=== PATIENT | male | born 1980 | race Caucasian/White ===

== ENCOUNTER 2018-08-17 08:01 | Emergency (ER) | payer MEDICARE ==
[~2018-08-17] VITALS: Ht 193 cm; Wt 104.3 kg
[~2018-08-17 08:01] MED LIST: Amphetamine Sal20 MG PO; Atarax10 MG; Ativan1 MG SL; BUSP5 PO; CARV6.25 PO; CITA20 PO; CLON.5 PO; CLON1 PO; CYCL10 PO; Dazidox10 MG PO; Desyrel50 MG; Desyrel50 MG PO; FURO40 PO; HYDPAM25 PO; HYDR1TAB94 PO; HYOSCYAMINE0.375 MG PO; Inderal40 MG PO; K-Dur20 MEQ PO; Kristalose20 GM PO; LISI5 PO; OMEP20ER PO; PROC5 PO; PROM25 PO; PROP10; VENL75ER PO; VITAMINS; XARELTO15 MG PO; XARELTO20 MG PO; Xanax1 MG PO; Zofran8 MG PO
[2018-08-17] MEDS ORDERED: ASPI81CH PO (08:17)
[2018-08-17 08:55] LABS: Source, Urine Clean Catch
[2018-08-17 09:04] LABS: Bilirubin, Urine Neg (Neg); Blood, Urine Neg (Neg); Glucose Qualitative, Urine Neg (Neg); Ketones, Urine 1+ (Neg); Leukocyte Esterase, Urine Neg (Neg); Nitrite, Urine Neg (Neg); Protein, Urine Neg (Neg); Urobilinogen, Urine 2+ (Normal)
[2018-08-17 09:05] LABS: Appearance, Urine Clear (Clear); Color, Urine Yellow (P-Yellow)
[2018-08-17 09:14] LABS: BASOPHILS ABSOLUTE AUTO 0.03 K/mm3 (0.00-0.23); BASOPHILS PERCENT AUTO 1 % (0-2); EOSINOPHILS ABSOLUTE AUTO 0.02 K/mm3 (0.00-0.68); EOSINOPHILS PERCENT AUTO 0 % (0-6); Hematocrit 46.2 % (37.0-53.0); Hemoglobin 15.5 g/dL (13.5-17.5); IMMATURE GRAN ABSOLUTE AUTO 0.01 K/mm3 (0.00-0.10); IMMATURE GRAN PERCENT AUTO 0 % (0-1); LYMPHOCYTES ABSOLUTE AUTO 1.33 K/mm3 (0.84-5.20); LYMPHOCYTES PERCENT AUTO 21 % (21-46); MONOCYTES ABSOLUTE AUTO 0.31 K/mm3 (0.16-1.47); MONOCYTES PERCENT AUTO 5 % (4-13); Mean Corpuscular HGB 31.4 pg (26.0-34.0); Mean Corpuscular HGB Conc 33.5 g/dL (31.5-36.5); Mean Corpuscular Volume 94 fL (80-100); Mean Platelet Volume 11.1 fL (9.1-12.4); NEUTROPHILS ABSOLUTE AUTO 4.67 K/mm3 (1.96-9.15); NEUTROPHILS PERCENT AUTO 73 % (41-73); Platelet Count 199 K/mm3 (150-400); RDW Coefficient Variation 15.4 % (11.7-14.2); RDW Standard Deviation 52.8 fL (35.1-46.3); Red Blood Cell Count 4.94 M/mm3 (4.30-5.90); White Blood Cell Count 6.37 K/mm3 (4.00-11.30)
[2018-08-17 09:36] LABS: Alanine Aminotransfer (ALT/SGP 61 U/L (12-78); Albumin, Blood 3.8 g/dL (3.4-5.0); Albumin/Globulin Ratio 1.2 (0.8-1.8); Alk Phos 117 U/L (50-136); Anion Gap 10 mmol/L (6-16); Aspartate Aminotrans (AST/SGOT 51 U/L (12-37); Bilirubin, Total 1.3 mg/dL (0.1-1.0); Blood Urea Nitrogen 28 mg/dL (8-24); Bun/Creatinine Ratio 29.3 (12.0-20.0); CO2, Blood 23 mmol/L (21-32); Calcium, Blood 9.3 mg/dL (8.5-10.1); Chloride, Blood 107 mmol/L (98-108); Creatinine, Blood 0.96 mg/dL (0.60-1.20); Globulin, Blood 3.2 g/dL (2.2-4.0); Glomerular Filtration Rate >60 (60-); Glucose, Blood 101 mg/dL (70-99); Sodium, Blood 140 mmol/L (136-145)
[2018-08-17] MEDS ORDERED: ONDA4ODT MM (10:20)
== END 2018-08-17 10:46 | disposition home or self-care (01) ==
LOC: ER 08:01
PROVIDERS: Emergency Medicine
DX: R10.84 Generalized abdominal pain (principal); R10.11 Right upper quadrant pain; R10.33 Periumbilical pain; R11.2 Nausea with vomiting, unspecified; Z90.49 Acquired absence of other specified parts of digestive tract; Z88.8 Allergy status to other drugs, medicaments and biological substances; Z79.899 Other long term (current) drug therapy; F17.290 Nicotine dependence, other tobacco product, uncomplicated
CPT/HCPCS: 36415; 74177; 80053; 81003; 83605; 83690; 85025; 96361; 96374-59; 96375; 99284-25; J1630; J3010; J7030; Q9967

== ENCOUNTER 2019-05-31 09:39 | Emergency (ER) | payer MEDICARE ==
[~2019-05-31] VITALS: Ht 195.6 cm; Wt 99.8 kg
[~2019-05-31 09:39] MED LIST changes: +ASPI81CH PO; +ONDA4ODT MM
[2019-05-31] MEDS ORDERED: K-Dur20 MEQ (09:59)
[2019-05-31 11:14] LABS: BASOPHILS ABSOLUTE AUTO 0.08 K/mm3 (0.00-0.23); BASOPHILS PERCENT AUTO 1 % (0-2); EOSINOPHILS ABSOLUTE AUTO 0.04 K/mm3 (0.00-0.68); EOSINOPHILS PERCENT AUTO 1 % (0-6); Hematocrit 40.2 % (37.0-53.0); Hemoglobin 12.8 g/dL (13.5-17.5); IMMATURE GRAN ABSOLUTE AUTO 0.03 K/mm3 (0.00-0.10); IMMATURE GRAN PERCENT AUTO 0 % (0-1); LYMPHOCYTES PERCENT AUTO 24 % (21-46); MONOCYTES ABSOLUTE AUTO 0.67 K/mm3 (0.16-1.47); MONOCYTES PERCENT AUTO 8 % (4-13); Mean Corpuscular HGB 26.8 pg (26.0-34.0); Mean Corpuscular HGB Conc 31.8 g/dL (31.5-36.5); Mean Corpuscular Volume 84 fL (80-100); Mean Platelet Volume 10.6 fL (9.1-12.4); NEUTROPHILS ABSOLUTE AUTO 5.32 K/mm3 (1.96-9.15); NEUTROPHILS PERCENT AUTO 66 % (41-73); Platelet Count 226 K/mm3 (150-400); RDW Coefficient Variation 17.1 % (11.7-14.2); RDW Standard Deviation 52.1 fL (35.1-46.3); Red Blood Cell Count 4.77 M/mm3 (4.30-5.90); White Blood Cell Count 8.04 K/mm3 (4.00-11.30)
[2019-05-31 11:27] LABS: International Normalized Ratio 1.38; Prothrombin Time Results 14.5 Sec (9.7-11.5)
[2019-05-31 11:34] LABS: Alanine Aminotransfer (ALT/SGP 48 U/L (12-78); Albumin, Blood 3.3 g/dL (3.4-5.0); Alk Phos 123 U/L (50-136); Anion Gap 8 mmol/L (6-16); Aspartate Aminotrans (AST/SGOT 45 U/L (12-37); Bilirubin, Total 1.9 mg/dL (0.1-1.0); Blood Urea Nitrogen 18 mg/dL (8-24); Bun/Creatinine Ratio 18.8 (12.0-20.0); CO2, Blood 22 mmol/L (21-32); Calcium, Blood 8.8 mg/dL (8.5-10.1); Chloride, Blood 109 mmol/L (98-108); Creatinine, Blood 0.96 mg/dL (0.60-1.20); Globulin, Blood 3.2 g/dL (2.2-4.0); Glomerular Filtration Rate >60 (60-); Glucose, Blood 91 mg/dL (70-99); Potassium, Blood 4.4 mmol/L (3.5-5.5); Sodium, Blood 139 mmol/L (136-145); Total Protein, Blood 6.5 g/dL (6.4-8.2)
[2019-05-31 11:35] LABS: Troponin I 0.062 ng/mL (0.000-0.040)
[2019-05-31 11:46] LABS: Free Thyroxine 1.22 ng/dL (0.70-1.60)
[2019-05-31 11:47] LABS: Thyroid Stimulating Hormone 3.21 uIU/mL (0.360-4.800)
[2019-05-31 12:57] LABS: Source, Urine Clean Catch
[2019-05-31 13:19] LABS: Bilirubin, Urine Neg (Neg); Blood, Urine 5+ (Neg); Glucose Qualitative, Urine Neg (Neg); Ketones, Urine Neg (Neg); Leukocyte Esterase, Urine Neg (Neg); Nitrite, Urine Neg (Neg); Protein, Urine 3+ (Neg); Urobilinogen, Urine 3+ (Normal)
[2019-05-31 13:34] LABS: Appearance, Urine Clear (Clear); Color, Urine Yellow (P-Yellow)
[2019-05-31 13:35] LABS: Bacteria Not Seen /hpf; Squamous Epithelial Cells Not Seen /hpf (Few); White Blood Cells, Urine 0-2 /hpf (0-5)
[2019-05-31] MEDS ORDERED: TORSE20 PO (13:53)
== END 2019-05-31 14:26 | disposition home or self-care (01) ==
LOC: ER 09:39
PROVIDERS: Emergency Medicine
DX: I50.9 Heart failure, unspecified (principal); R31.9 Hematuria, unspecified; F17.290 Nicotine dependence, other tobacco product, uncomplicated; Z88.1 Allergy status to other antibiotic agents; Z79.899 Other long term (current) drug therapy; Z79.82 Long term (current) use of aspirin
CPT/HCPCS: 36415; 71046; 71260; 80053; 81001; 83735; 83880; 84439; 84443; 84484; 85025; 85610; 85730; 93005; 93010; 99285-25; Q9967

== ENCOUNTER 2019-09-02 14:47 | Observation (INO) | payer MEDICARE ==
[~2019-09-02] VITALS: Ht 193 cm; Wt 93.7 kg
[~2019-09-02 14:47] MED LIST changes: -ASPI81CH PO; +Aspirin EC81 MG PO; +HYDHCL25 PO; +K-Dur20 MEQ; +TORSE20 PO; +TRAM50 PO
[2019-09-02 15:35] LABS: BASOPHILS ABSOLUTE AUTO 0.07 K/mm3 (0.00-0.23); BASOPHILS PERCENT AUTO 1 % (0-2); EOSINOPHILS ABSOLUTE AUTO 0.04 K/mm3 (0.00-0.68); EOSINOPHILS PERCENT AUTO 1 % (0-6); Hematocrit 49.3 % (37.0-53.0); Hemoglobin 15.9 g/dL (13.5-17.5); IMMATURE GRAN ABSOLUTE AUTO 0.01 K/mm3 (0.00-0.10); IMMATURE GRAN PERCENT AUTO 0 % (0-1); LYMPHOCYTES ABSOLUTE AUTO 1.74 K/mm3 (0.84-5.20); LYMPHOCYTES PERCENT AUTO 32 % (21-46); MONOCYTES ABSOLUTE AUTO 0.46 K/mm3 (0.16-1.47); MONOCYTES PERCENT AUTO 8 % (4-13); Mean Corpuscular HGB 26.2 pg (26.0-34.0); Mean Corpuscular HGB Conc 32.3 g/dL (31.5-36.5); Mean Corpuscular Volume 81 fL (80-100); Mean Platelet Volume 10.3 fL (9.1-12.4); NEUTROPHILS PERCENT AUTO 58 % (41-73); Platelet Count 235 K/mm3 (150-400); RDW Coefficient Variation 18.9 % (11.7-14.2); RDW Standard Deviation 53.1 fL (35.1-46.3); Red Blood Cell Count 6.08 M/mm3 (4.30-5.90); White Blood Cell Count 5.52 K/mm3 (4.00-11.30)
[2019-09-02 16:05] LABS: Alanine Aminotransfer (ALT/SGP 31 U/L (12-78); Albumin, Blood 4.2 g/dL (3.4-5.0); Alk Phos 159 U/L (50-136); Anion Gap 16 mmol/L (6-16); Aspartate Aminotrans (AST/SGOT 38 U/L (12-37); Bilirubin, Total 2.5 mg/dL (0.1-1.0); Blood Urea Nitrogen 14 mg/dL (8-24); Bun/Creatinine Ratio 16.5 (12.0-20.0); CO2, Blood 18 mmol/L (21-32); Chloride, Blood 107 mmol/L (98-108); Creatinine, Blood 0.85 mg/dL (0.60-1.20); Globulin, Blood 4.1 g/dL (2.2-4.0); Glomerular Filtration Rate >60 (60-); Glucose, Blood 89 mg/dL (70-99); Potassium, Blood 3.5 mmol/L (3.5-5.5); Sodium, Blood 141 mmol/L (136-145); Total Protein, Blood 8.3 g/dL (6.4-8.2); Troponin I 0.069 ng/mL (0.000-0.040)
[2019-09-02] MEDS ORDERED: TORSE20 PO (18:36)
[2019-09-02] MEDS ORDERED: K-Dur 20 meq T20 MEQ PO (18:57)
[2019-09-02 23:18] LABS: Source, Urine Clean Catch
[2019-09-02 23:21] LABS: Appearance, Urine Clear (Clear); Bilirubin, Urine Neg (Neg); Blood, Urine Neg (Neg); Color, Urine Amber (P-Yellow); Glucose Qualitative, Urine Neg (Neg); Ketones, Urine 4+ (Neg); Leukocyte Esterase, Urine Neg (Neg); Nitrite, Urine Neg (Neg); Protein, Urine 1+ (Neg); Specific Gravity, Urine 1.015 (1.003-1.022); Urobilinogen, Urine 3+ (Normal)
--- NOTE | 2019-09-03 05:30 | NUR ---
SHIFT SUMMARY PT WAS NEW ER ADMIT THIS SHIFT (2118) NO ACUTE CHANGES SINCE ASSUMING CARE, PT IS PLEASANT, A&O, INDEP TO BR, MEDICATED FOR PAIN X2, NAUSEA X2, NO OTHER C/O ANY KIND, SLEPT T/O THE NIGHT, SLEEPING AT THIS TIME, CALL LIGHT IN REACH, WILL CONT TO MONITOR UNTIL REPORT GIVEN TO DAY RN.
[2019-09-03 05:31] LABS: Alanine Aminotransfer (ALT/SGP 27 U/L (12-78); Albumin, Blood 3.2 g/dL (3.4-5.0); Albumin/Globulin Ratio 0.9 (0.8-1.8); Alk Phos 128 U/L (50-136); Anion Gap 7 mmol/L (6-16); Aspartate Aminotrans (AST/SGOT 25 U/L (12-37); Bilirubin, Total 1.5 mg/dL (0.1-1.0); Blood Urea Nitrogen 12 mg/dL (8-24); Bun/Creatinine Ratio 14.4 (12.0-20.0); CO2, Blood 24 mmol/L (21-32); Calcium, Blood 8.9 mg/dL (8.5-10.1); Chloride, Blood 111 mmol/L (98-108); Creatinine, Blood 0.84 mg/dL (0.60-1.20); Globulin, Blood 3.5 g/dL (2.2-4.0); Glomerular Filtration Rate >60 (60-); Glucose, Blood 95 mg/dL (70-99); Potassium, Blood 4.4 mmol/L (3.5-5.5); Sodium, Blood 142 mmol/L (136-145); Total Protein, Blood 6.7 g/dL (6.4-8.2)
--- NOTE | 2019-09-03 10:56 | NUR ---
REGULAR DIET RECEIVED VERBAL ORDER FROM DR. RIDDLE TO ADVANCE DIET TOLERATED. PATIENT REQUESTING REGULAR DIET, DENIES NAUSEA.
[2019-09-03] MEDS ORDERED: METO10 PO (13:16)
[2019-09-03] MEDS ORDERED: Inzo Antifun141.7 GM TOP (13:23)
[2019-09-03] MEDS ORDERED: Prilosec Otc20 MG PO (13:24)
[2019-09-03] MEDS ORDERED: Magnesium-Alum360 ML (13:25)
[2019-09-03] MEDS ORDERED: ALMACONE SUSPE355 ML PO (13:26)
[2019-09-23] MEDS ORDERED: ACET325 PO (13:19)
[2019-09-23] MEDS ORDERED: ALMACONE SUSPE355 ML PO (13:20)
[2019-09-23] MEDS ORDERED: PROM25 PO (13:21)
[2019-09-23] MEDS ORDERED: PANT40 PO (13:21)
[2019-09-23] MEDS ORDERED: OXYACE7.5T PO (13:22)
== END 2019-09-03 14:13 | disposition home or self-care (01) ==
LOC: ER 14:47 → MEDS 14:48 → ER 21:15 → MEDS 21:35
PROVIDERS: Physician Assistant; ADMIT Internal Medicine
DX: R11.2 Nausea with vomiting, unspecified (principal); R10.9 Unspecified abdominal pain; K52.9 Noninfective gastroenteritis and colitis, unspecified; I27.21 Secondary pulmonary arterial hypertension; R79.89 Other specified abnormal findings of blood chemistry; Z88.1 Allergy status to other antibiotic agents; Z87.891 Personal history of nicotine dependence; I50.9 Heart failure, unspecified; Z79.899 Other long term (current) drug therapy
CPT/HCPCS: 36415; 71045; 74177; 80053; 83690; 83880; 84484; 85025; 85379; 93005; 93010; 96372; 96374-59; 96375-59; 96376; 99285-25; G0378; J1170; J1200; J1630; J1650; J2270; J2405; J2550; J7030; Q9967

== ENCOUNTER 2019-10-02 09:39 | Emergency (ER) | payer MEDICARE ==
[~2019-10-02] VITALS: Ht 193 cm; Wt 99.8 kg
[~2019-10-02 09:39] MED LIST changes: +ACET325 PO; +ALMACONE SUSPE355 ML PO; +Inzo Antifun141.7 GM TOP; +K-Dur 20 meq T20 MEQ PO; +METO10 PO; +Magnesium-Alum360 ML; +OXYACE7.5T PO; +PANT40 PO; +Prilosec Otc20 MG PO
[2019-10-02 12:20] LABS: Alanine Aminotransfer (ALT/SGP 39 U/L (12-78); Albumin, Blood 3.3 g/dL (3.4-5.0); Albumin/Globulin Ratio 1.1 (0.8-1.8); Alk Phos 108 U/L (50-136); Anion Gap 9 mmol/L (6-16); Aspartate Aminotrans (AST/SGOT 32 U/L (12-37); Bilirubin, Total 1.1 mg/dL (0.1-1.0); Blood Urea Nitrogen 10 mg/dL (8-24); Bun/Creatinine Ratio 15.7 (12.0-20.0); CO2, Blood 20 mmol/L (21-32); Calcium, Blood 8.3 mg/dL (8.5-10.1); Chloride, Blood 113 mmol/L (98-108); Creatinine, Blood 0.64 mg/dL (0.60-1.20); Globulin, Blood 2.9 g/dL (2.2-4.0); Glomerular Filtration Rate >60 (60-); Glucose, Blood 85 mg/dL (70-99); Potassium, Blood 4.3 mmol/L (3.5-5.5); Sodium, Blood 142 mmol/L (136-145); Total Protein, Blood 6.2 g/dL (6.4-8.2)
[2019-10-02 12:21] LABS: U Amphetamine Screen Not Detected; U Barbituate Screen Not Detected; U Benzodiazapine Screen Not Detected; U Buprenorphine Screen Not Detected; U Cannabinoids Screen DETECTED; U Cocaine Screen Not Detected; U Methadone Screen Not Detected; U Methamphetamine Screen Not Detected; U Opiates Screen Not Detected; U Oxycodone Screen Not Detected; U Phencyclidine Screen Not Detected; U Propoxyphene Screen Not Detected
[2019-10-02 13:54] LABS: BASOPHILS ABSOLUTE AUTO 0.05 K/mm3 (0.00-0.23); BASOPHILS PERCENT AUTO 1 % (0-2); EOSINOPHILS ABSOLUTE AUTO 0.04 K/mm3 (0.00-0.68); EOSINOPHILS PERCENT AUTO 1 % (0-6); Hematocrit 44.4 % (37.0-53.0); Hemoglobin 14.4 g/dL (13.5-17.5); IMMATURE GRAN ABSOLUTE AUTO 0.04 K/mm3 (0.00-0.10); IMMATURE GRAN PERCENT AUTO 1 % (0-1); LYMPHOCYTES ABSOLUTE AUTO 1.03 K/mm3 (0.84-5.20); LYMPHOCYTES PERCENT AUTO 15 % (21-46); MONOCYTES ABSOLUTE AUTO 0.39 K/mm3 (0.16-1.47); MONOCYTES PERCENT AUTO 6 % (4-13); Mean Corpuscular HGB 27.2 pg (26.0-34.0); Mean Corpuscular HGB Conc 32.4 g/dL (31.5-36.5); Mean Corpuscular Volume 84 fL (80-100); Mean Platelet Volume 10.7 fL (9.1-12.4); NEUTROPHILS ABSOLUTE AUTO 5.27 K/mm3 (1.96-9.15); NEUTROPHILS PERCENT AUTO 77 % (41-73); Platelet Count 214 K/mm3 (150-400); RDW Coefficient Variation 19.9 % (11.7-14.2); RDW Standard Deviation 60.2 fL (35.1-46.3); White Blood Cell Count 6.82 K/mm3 (4.00-11.30)
== END 2019-10-02 16:12 | disposition home or self-care (01) ==
LOC: ER 09:39
PROVIDERS: Emergency Medicine
DX: K29.70 Gastritis, unspecified, without bleeding (principal); Z88.1 Allergy status to other antibiotic agents; Z88.8 Allergy status to other drugs, medicaments and biological substances; Z87.891 Personal history of nicotine dependence; Z79.899 Other long term (current) drug therapy
CPT/HCPCS: 36415; 74022; 80053; 83690; 85025; 96361; 96374; 96375; 99284-25; C9113; J0780; J1200; J1630; J3010; J7030

== ENCOUNTER 2019-10-26 14:31 | Emergency (ER) | payer MEDICARE ==
[~2019-10-26] VITALS: Ht 193 cm; Wt 99.8 kg
[2019-10-26 15:05] LABS: BASOPHILS ABSOLUTE AUTO 0.05 K/mm3 (0.00-0.23); BASOPHILS PERCENT AUTO 1 % (0-2); EOSINOPHILS ABSOLUTE AUTO 0.06 K/mm3 (0.00-0.68); EOSINOPHILS PERCENT AUTO 1 % (0-6); Hematocrit 47.5 % (37.0-53.0); Hemoglobin 16.1 g/dL (13.5-17.5); IMMATURE GRAN ABSOLUTE AUTO 0.02 K/mm3 (0.00-0.10); IMMATURE GRAN PERCENT AUTO 0 % (0-1); LYMPHOCYTES PERCENT AUTO 24 % (21-46); MONOCYTES ABSOLUTE AUTO 0.56 K/mm3 (0.16-1.47); MONOCYTES PERCENT AUTO 6 % (4-13); Mean Corpuscular HGB 28.2 pg (26.0-34.0); Mean Corpuscular HGB Conc 33.9 g/dL (31.5-36.5); Mean Corpuscular Volume 83 fL (80-100); Mean Platelet Volume 10.6 fL (9.1-12.4); NEUTROPHILS ABSOLUTE AUTO 6.32 K/mm3 (1.96-9.15); NEUTROPHILS PERCENT AUTO 69 % (41-73); Platelet Count 242 K/mm3 (150-400); RDW Coefficient Variation 19.3 % (11.7-14.2); RDW Standard Deviation 56.3 fL (35.1-46.3); Red Blood Cell Count 5.71 M/mm3 (4.30-5.90); White Blood Cell Count 9.21 K/mm3 (4.00-11.30)
[2019-10-26 15:16] LABS: Alanine Aminotransfer (ALT/SGP 74 U/L (12-78); Albumin, Blood 4.4 g/dL (3.4-5.0); Albumin/Globulin Ratio 1.1 (0.8-1.8); Alk Phos 135 U/L (50-136); Anion Gap 15 mmol/L (6-16); Aspartate Aminotrans (AST/SGOT 40 U/L (12-37); Bilirubin, Total 1.5 mg/dL (0.1-1.0); Blood Urea Nitrogen 12 mg/dL (8-24); Bun/Creatinine Ratio 12.6 (12.0-20.0); CO2, Blood 21 mmol/L (21-32); Calcium, Blood 10.1 mg/dL (8.5-10.1); Chloride, Blood 103 mmol/L (98-108); Creatinine, Blood 0.95 mg/dL (0.60-1.20); Globulin, Blood 3.9 g/dL (2.2-4.0); Glomerular Filtration Rate >60 (60-); Glucose, Blood 124 mg/dL (70-99); Potassium, Blood 3.6 mmol/L (3.5-5.5); Sodium, Blood 139 mmol/L (136-145); Total Protein, Blood 8.3 g/dL (6.4-8.2)
[2019-10-26] MEDS ORDERED: Percocet 5-3251 EACH PO (16:35)
[2019-10-26] MEDS ORDERED: Protonix40 MG PO (16:35)
[2019-10-26] MEDS ORDERED: PROM25 PO (16:35)
[2019-10-29] MEDS ORDERED: POTCHL20ER PO (22:41)
== END 2019-10-26 17:21 | disposition home or self-care (01) ==
LOC: ER 14:31
PROVIDERS: Emergency Medicine
DX: K29.70 Gastritis, unspecified, without bleeding (principal); I50.9 Heart failure, unspecified; Z88.1 Allergy status to other antibiotic agents; Z88.8 Allergy status to other drugs, medicaments and biological substances; Z79.899 Other long term (current) drug therapy; Z87.891 Personal history of nicotine dependence
CPT/HCPCS: 36415; 71046; 80053; 83690; 83880; 84484; 85025; 93005; 93010; 96361; 96374; 96375; 99284-25; C9113; J1170; J2405; J2550; J7030

== ENCOUNTER 2020-02-04 12:39 | Emergency (ER) | payer MEDICARE ==
[~2020-02-04] VITALS: Ht 195.6 cm; Wt 86.2 kg
[~2020-02-04 12:39] MED LIST changes: +HYDMOR2 PO; +LORA.5 PO; +POTCHL20ER PO; +Percocet 5-3251 EACH PO; +Promethazi25 MG/1 M2 PO; +Protonix40 MG PO
[2020-02-04 13:04] LABS: BASOPHILS ABSOLUTE AUTO 0.04 K/mm3 (0.00-0.23); BASOPHILS PERCENT AUTO 1 % (0-2); EOSINOPHILS ABSOLUTE AUTO 0.01 K/mm3 (0.00-0.68); EOSINOPHILS PERCENT AUTO 0 % (0-6); Hematocrit 41.6 % (37.0-53.0); Hemoglobin 14.1 g/dL (13.5-17.5); IMMATURE GRAN ABSOLUTE AUTO 0.01 K/mm3 (0.00-0.10); IMMATURE GRAN PERCENT AUTO 0 % (0-1); LYMPHOCYTES ABSOLUTE AUTO 1.36 K/mm3 (0.84-5.20); LYMPHOCYTES PERCENT AUTO 16 % (21-46); MONOCYTES ABSOLUTE AUTO 0.52 K/mm3 (0.16-1.47); MONOCYTES PERCENT AUTO 6 % (4-13); Mean Corpuscular HGB 29.1 pg (26.0-34.0); Mean Corpuscular HGB Conc 33.9 g/dL (31.5-36.5); Mean Corpuscular Volume 86 fL (80-100); Mean Platelet Volume 11.1 fL (9.1-12.4); NEUTROPHILS ABSOLUTE AUTO 6.57 K/mm3 (1.96-9.15); NEUTROPHILS PERCENT AUTO 77 % (41-73); Platelet Count 269 K/mm3 (150-400); RDW Coefficient Variation 13.8 % (11.7-14.2); RDW Standard Deviation 43.2 fL (35.1-46.3); Red Blood Cell Count 4.85 M/mm3 (4.30-5.90); White Blood Cell Count 8.51 K/mm3 (4.00-11.30)
[2020-02-04 13:29] LABS: Alanine Aminotransfer (ALT/SGP 36 U/L (12-78); Albumin, Blood 4.2 g/dL (3.4-5.0); Albumin/Globulin Ratio 1.1 (0.8-1.8); Alk Phos 148 U/L (50-136); Anion Gap 14 mmol/L (6-16); Aspartate Aminotrans (AST/SGOT 35 U/L (12-37); Bilirubin, Total 1.5 mg/dL (0.1-1.0); Blood Urea Nitrogen 18 mg/dL (8-24); Bun/Creatinine Ratio 21.2 (12.0-20.0); CO2, Blood 21 mmol/L (21-32); Calcium, Blood 10.1 mg/dL (8.5-10.1); Chloride, Blood 102 mmol/L (98-108); Creatinine, Blood 0.85 mg/dL (0.60-1.20); Globulin, Blood 3.8 g/dL (2.2-4.0); Glomerular Filtration Rate >60 (60-); Glucose, Blood 137 mg/dL (70-99); Potassium, Blood 3.2 mmol/L (3.5-5.5); Sodium, Blood 137 mmol/L (136-145)
[2020-02-04] MEDS ORDERED: PROM25 PO (17:03)
[2020-02-06] MEDS ORDERED: TORS10 PO (11:54)
[2020-02-06] MEDS ORDERED: XARELTO20 MG PO (18:36)
[2020-02-06] MEDS ORDERED: [UNRECOGNIZED DRUG - REMARK] (18:37)
[2020-02-08] MEDS ORDERED: ONDA4ODT MM (11:25)
[2020-02-08] MEDS ORDERED: POTA10T PO (11:27)
== END 2020-02-04 17:22 | disposition home or self-care (01) ==
LOC: ER 12:39
PROVIDERS: Emergency Medicine
DX: K29.70 Gastritis, unspecified, without bleeding (principal); I50.9 Heart failure, unspecified; Z87.891 Personal history of nicotine dependence
CPT/HCPCS: 36415; 74019; 80053; 83690; 85025; 96361; 96374; 96375; 99284-25; J1200; J1630; J2405; J2550; J3010; J7030

== ENCOUNTER 2020-03-23 21:49 | Emergency (ER) | payer MEDICARE ==
[~2020-03-23] VITALS: Ht 193 cm; Wt 81.7 kg
[~2020-03-23 21:49] MED LIST changes: +POTA10T PO; +TORS10 PO; +[UNRECOGNIZED DRUG - REMARK]
[2020-03-23 22:06] LABS: BASOPHILS ABSOLUTE AUTO 0.02 K/mm3 (0.00-0.23); BASOPHILS PERCENT AUTO 0 % (0-2); EOSINOPHILS PERCENT AUTO 0 % (0-6); Hemoglobin 13.6 g/dL (13.5-17.5); IMMATURE GRAN ABSOLUTE AUTO 0.03 K/mm3 (0.00-0.10); IMMATURE GRAN PERCENT AUTO 0 % (0-1); LYMPHOCYTES ABSOLUTE AUTO 0.82 K/mm3 (0.84-5.20); LYMPHOCYTES PERCENT AUTO 8 % (21-46); MONOCYTES ABSOLUTE AUTO 0.22 K/mm3 (0.16-1.47); MONOCYTES PERCENT AUTO 2 % (4-13); Mean Corpuscular HGB 28.3 pg (26.0-34.0); Mean Corpuscular HGB Conc 33.2 g/dL (31.5-36.5); Mean Corpuscular Volume 85 fL (80-100); Mean Platelet Volume 10.5 fL (9.1-12.4); NEUTROPHILS ABSOLUTE AUTO 8.91 K/mm3 (1.96-9.15); NEUTROPHILS PERCENT AUTO 89 % (41-73); Platelet Count 256 K/mm3 (150-400); RDW Coefficient Variation 14.7 % (11.7-14.2); RDW Standard Deviation 46.1 fL (35.1-46.3)
[2020-03-23] MEDS ORDERED: FURO40 PO (22:07)
[2020-03-23 22:23] LABS: Alanine Aminotransfer (ALT/SGP 253 U/L (12-78); Albumin, Blood 3.8 g/dL (3.4-5.0); Alk Phos 132 U/L (50-136); Anion Gap 11 mmol/L (6-16); Aspartate Aminotrans (AST/SGOT 96 U/L (12-37); Bilirubin, Total 0.9 mg/dL (0.1-1.0); Blood Urea Nitrogen 12 mg/dL (8-24); Bun/Creatinine Ratio 16.1 (12.0-20.0); CO2, Blood 21 mmol/L (21-32); Calcium, Blood 9.4 mg/dL (8.5-10.1); Chloride, Blood 108 mmol/L (98-108); Creatinine, Blood 0.75 mg/dL (0.60-1.20); Globulin, Blood 3.7 g/dL (2.2-4.0); Glomerular Filtration Rate >60 (60-); Glucose, Blood 138 mg/dL (70-99); Potassium, Blood 3.8 mmol/L (3.5-5.5); Sodium, Blood 140 mmol/L (136-145); Total Protein, Blood 7.5 g/dL (6.4-8.2)
== END 2020-03-23 23:24 | disposition home or self-care (01) ==
LOC: ER 21:49
PROVIDERS: Emergency Medicine
DX: K52.9 Noninfective gastroenteritis and colitis, unspecified (principal); I11.0 Hypertensive heart disease with heart failure; I50.9 Heart failure, unspecified; Z88.1 Allergy status to other antibiotic agents; Z88.5 Allergy status to narcotic agent; Z88.8 Allergy status to other drugs, medicaments and biological substances; Z87.891 Personal history of nicotine dependence; Z79.899 Other long term (current) drug therapy
CPT/HCPCS: 36415; 80053; 83690; 85025; 93005; 93010; 96374; 99284-25; A9270; J1790

== ENCOUNTER 2020-04-07 17:55 | Emergency (ER) | payer MEDICARE ==
[~2020-04-07] VITALS: Ht 193 cm; Wt 81.7 kg
[2020-04-07 18:26] LABS: BASOPHILS ABSOLUTE AUTO 0.03 K/mm3 (0.00-0.23); BASOPHILS PERCENT AUTO 0 % (0-2); EOSINOPHILS PERCENT AUTO 0 % (0-6); Hematocrit 41.7 % (37.0-53.0); Hemoglobin 14.6 g/dL (13.5-17.5); IMMATURE GRAN ABSOLUTE AUTO 0.04 K/mm3 (0.00-0.10); IMMATURE GRAN PERCENT AUTO 0 % (0-1); LYMPHOCYTES ABSOLUTE AUTO 0.51 K/mm3 (0.84-5.20); LYMPHOCYTES PERCENT AUTO 5 % (21-46); MONOCYTES ABSOLUTE AUTO 0.14 K/mm3 (0.16-1.47); MONOCYTES PERCENT AUTO 1 % (4-13); Mean Corpuscular HGB 28.4 pg (26.0-34.0); Mean Corpuscular Volume 81 fL (80-100); Mean Platelet Volume 11.1 fL (9.1-12.4); NEUTROPHILS ABSOLUTE AUTO 9.73 K/mm3 (1.96-9.15); NEUTROPHILS PERCENT AUTO 93 % (41-73); Platelet Count 251 K/mm3 (150-400); RDW Coefficient Variation 14.8 % (11.7-14.2); RDW Standard Deviation 43.4 fL (35.1-46.3); Red Blood Cell Count 5.14 M/mm3 (4.30-5.90); White Blood Cell Count 10.45 K/mm3 (4.00-11.30)
[2020-04-07 18:39] LABS: Alanine Aminotransfer (ALT/SGP 65 U/L (12-78); Albumin, Blood 4.6 g/dL (3.4-5.0); Albumin/Globulin Ratio 1.2 (0.8-1.8); Alk Phos 134 U/L (50-136); Anion Gap 15 mmol/L (6-16); Aspartate Aminotrans (AST/SGOT 39 U/L (12-37); Bilirubin, Total 1.3 mg/dL (0.1-1.0); Blood Urea Nitrogen 23 mg/dL (8-24); Bun/Creatinine Ratio 29.3 (12.0-20.0); CO2, Blood 18 mmol/L (21-32); Calcium, Blood 10.2 mg/dL (8.5-10.1); Chloride, Blood 105 mmol/L (98-108); Creatinine, Blood 0.78 mg/dL (0.60-1.20); Globulin, Blood 3.8 g/dL (2.2-4.0); Glomerular Filtration Rate >60 (60-); Glucose, Blood 151 mg/dL (70-99); Potassium, Blood 3.4 mmol/L (3.5-5.5); Sodium, Blood 138 mmol/L (136-145); Total Protein, Blood 8.4 g/dL (6.4-8.2)
[2020-04-07 18:45] LABS: Magnesium, Blood 1.7 mg/dL (1.6-2.4); Troponin I 0.024 ng/mL (0.000-0.040)
[2020-04-07] MEDS ORDERED: PROM25 PO (21:33)
[2020-04-07] MEDS ORDERED: HYDR1TAB94 PO (21:33)
[2020-04-07] MEDS ORDERED: Colace250 MG PO (21:33)
== END 2020-04-07 21:50 | disposition home or self-care (01) ==
LOC: ER 17:55
PROVIDERS: Emergency Medicine
DX: R10.10 Upper abdominal pain, unspecified (principal); R11.0 Nausea; R07.9 Chest pain, unspecified; R00.2 Palpitations; R20.2 Paresthesia of skin; I50.9 Heart failure, unspecified; Z98.890 Other specified postprocedural states; Z88.1 Allergy status to other antibiotic agents; Z88.6 Allergy status to analgesic agent; Z86.718 Personal history of other venous thrombosis and embolism; Z87.891 Personal history of nicotine dependence
CPT/HCPCS: 71045; 74177; 80053; 83690; 83735; 84484; 85025; 93005; 93010; 96374-59; 96375; 99285-25; A9270; J1170; J2405; J2550; Q9967

== ENCOUNTER 2020-09-18 21:43 | Emergency (ER) | payer MEDICARE ==
[~2020-09-18] VITALS: Ht 193 cm; Wt 80.3 kg
[~2020-09-18 21:43] MED LIST changes: +Colace250 MG PO
[2020-09-18] MEDS ORDERED: KLOR-CON 1010 ME3 PO (21:56)
[2020-09-18 22:44] LABS: BASOPHILS ABSOLUTE AUTO 0.04 K/mm3 (0.00-0.23); BASOPHILS PERCENT AUTO 1 % (0-2); EOSINOPHILS ABSOLUTE AUTO 0.02 K/mm3 (0.00-0.68); EOSINOPHILS PERCENT AUTO 0 % (0-6); Hematocrit 41.7 % (37.0-53.0); Hemoglobin 13.4 g/dL (13.5-17.5); IMMATURE GRAN ABSOLUTE AUTO 0.02 K/mm3 (0.00-0.10); IMMATURE GRAN PERCENT AUTO 0 % (0-1); LYMPHOCYTES ABSOLUTE AUTO 0.96 K/mm3 (0.84-5.20); LYMPHOCYTES PERCENT AUTO 13 % (21-46); MONOCYTES ABSOLUTE AUTO 0.33 K/mm3 (0.16-1.47); MONOCYTES PERCENT AUTO 4 % (4-13); Mean Corpuscular HGB 25.5 pg (26.0-34.0); Mean Corpuscular HGB Conc 32.1 g/dL (31.5-36.5); Mean Corpuscular Volume 79 fL (80-100); Mean Platelet Volume 10.8 fL (9.1-12.4); NEUTROPHILS ABSOLUTE AUTO 6.31 K/mm3 (1.96-9.15); NEUTROPHILS PERCENT AUTO 82 % (41-73); Platelet Count 272 K/mm3 (150-400); RDW Coefficient Variation 14.6 % (11.7-14.2); RDW Standard Deviation 42.2 fL (35.1-46.3); Red Blood Cell Count 5.26 M/mm3 (4.30-5.90); White Blood Cell Count 7.68 K/mm3 (4.00-11.30)
[2020-09-18 22:55] LABS: Alanine Aminotransfer (ALT/SGP 35 U/L (12-78); Albumin/Globulin Ratio 1.1 (0.8-1.8); Alk Phos 127 U/L (50-136); Anion Gap 9 mmol/L (6-16); Aspartate Aminotrans (AST/SGOT 31 U/L (12-37); Bilirubin, Total 1.2 mg/dL (0.1-1.0); Blood Urea Nitrogen 17 mg/dL (8-24); Bun/Creatinine Ratio 16.8 (12.0-20.0); CO2, Blood 25 mmol/L (21-32); Calcium, Blood 9.3 mg/dL (8.5-10.1); Chloride, Blood 105 mmol/L (98-108); Creatinine, Blood 1.01 mg/dL (0.60-1.20); Globulin, Blood 3.6 g/dL (2.2-4.0); Glomerular Filtration Rate >60 (60-); Glucose, Blood 112 mg/dL (70-99); Potassium, Blood 3.4 mmol/L (3.5-5.5); Sodium, Blood 139 mmol/L (136-145); Total Protein, Blood 7.6 g/dL (6.4-8.2)
[2020-09-19] MEDS ORDERED: PROM25 PO (01:13)
== END 2020-09-19 01:26 | disposition home or self-care (01) ==
LOC: ER 21:43
PROVIDERS: Student in an Organized Health Care Education/Training Program
DX: R10.12 Left upper quadrant pain (principal); R11.0 Nausea; I50.9 Heart failure, unspecified; I27.20 Pulmonary hypertension, unspecified; Z88.0 Allergy status to penicillin; Z88.1 Allergy status to other antibiotic agents; Z88.6 Allergy status to analgesic agent; Z88.8 Allergy status to other drugs, medicaments and biological substances; Z79.899 Other long term (current) drug therapy; Z87.891 Personal history of nicotine dependence; Z98.84 Bariatric surgery status
CPT/HCPCS: 74177; 80053; 83690; 85025; 96374-59; 96375; 99284-25; A9270; C9113; J1630; J7030; Q9967

== ENCOUNTER 2020-12-07 17:51 | Emergency (ER) | payer MEDICARE ==
[~2020-12-07] VITALS: Ht 193 cm; Wt 81.7 kg
[~2020-12-07 17:51] MED LIST changes: +KLOR-CON 1010 ME3 PO; +PANT20 PO
== END 2020-12-07 18:04 | disposition left against medical advice (07) ==
LOC: ER 17:51
DX: R10.13 Epigastric pain (principal); Z53.21 Procedure and treatment not carried out due to patient leaving prior to being seen by health care provider
CPT/HCPCS: 99282

== ENCOUNTER 2021-02-25 17:30 | Inpatient (IN) | payer MEDICARE ==
[~2021-02-25] VITALS: Ht 193 cm; Wt 90.2 kg
[2021-02-25 18:03] LABS: BASOPHILS ABSOLUTE AUTO 0.07 K/mm3 (0.00-0.23); BASOPHILS PERCENT AUTO 1 % (0-2); EOSINOPHILS ABSOLUTE AUTO 0.06 K/mm3 (0.00-0.68); EOSINOPHILS PERCENT AUTO 1 % (0-6); Hematocrit 36.5 % (37.0-53.0); Hemoglobin 11.7 g/dL (13.5-17.5); IMMATURE GRAN ABSOLUTE AUTO 0.02 K/mm3 (0.00-0.10); IMMATURE GRAN PERCENT AUTO 0 % (0-1); LYMPHOCYTES ABSOLUTE AUTO 2.18 K/mm3 (0.84-5.20); LYMPHOCYTES PERCENT AUTO 35 % (21-46); MONOCYTES ABSOLUTE AUTO 0.46 K/mm3 (0.16-1.47); MONOCYTES PERCENT AUTO 7 % (4-13); Mean Corpuscular HGB 24.7 pg (26.0-34.0); Mean Corpuscular HGB Conc 32.1 g/dL (31.5-36.5); Mean Corpuscular Volume 77 fL (80-100); Mean Platelet Volume 10.2 fL (9.1-12.4); NEUTROPHILS ABSOLUTE AUTO 3.49 K/mm3 (1.96-9.15); NEUTROPHILS PERCENT AUTO 56 % (41-73); Platelet Count 244 K/mm3 (150-400); RDW Coefficient Variation 16.8 % (11.7-14.2); RDW Standard Deviation 46.5 fL (35.1-46.3); Red Blood Cell Count 4.74 M/mm3 (4.30-5.90); White Blood Cell Count 6.28 K/mm3 (4.00-11.30)
[2021-02-25 18:35] LABS: Alanine Aminotransfer (ALT/SGP 48 U/L (12-78); Albumin, Blood 3.4 g/dL (3.4-5.0); Albumin/Globulin Ratio 1.1 (0.8-1.8); Alk Phos 124 U/L (50-136); Anion Gap 9 mmol/L (6-16); Aspartate Aminotrans (AST/SGOT 37 U/L (12-37); Bilirubin, Total 1.2 mg/dL (0.1-1.0); Blood Urea Nitrogen 33 mg/dL (8-24); Bun/Creatinine Ratio 29.2 (12.0-20.0); CO2, Blood 23 mmol/L (21-32); Calcium, Blood 8.9 mg/dL (8.5-10.1); Chloride, Blood 108 mmol/L (98-108); Creatinine, Blood 1.13 mg/dL (0.60-1.20); Globulin, Blood 3.2 g/dL (2.2-4.0); Glomerular Filtration Rate >60 (60-); Glucose, Blood 82 mg/dL (70-99); Sodium, Blood 140 mmol/L (136-145); Total Protein, Blood 6.6 g/dL (6.4-8.2); Troponin I 0.095 ng/mL (0.000-0.040)
[2021-02-25] MEDS ORDERED: TORSE20 PO (18:43)
[2021-02-25] MEDS ORDERED: OMEP20ER PO (18:44)
[2021-02-25] MEDS ORDERED: ASPI81CH PO (18:44)
[2021-02-25] MEDS ORDERED: ZINC220 PO (21:33)
[2021-02-25] MEDS ORDERED: MULVITA PO (21:33)
[2021-02-25] MEDS ORDERED: VITAMIN D33000 UNIT PO (21:34)
[2021-02-25] MEDS ORDERED: Calcium Carbon500 MG PO (21:35)
[2021-02-25 22:16] LABS: Anti-Xa UFH, PHA Monitoring <0.10 IU/mL; International Normalized Ratio 1.34; Prothrombin Time Results 13.8 Sec (9.7-11.5)
[2021-02-25 22:21] LABS: CHOL/HDL RATIO 2.8; Cholesterol 88 mg/dL (50-200); HDL Cholesterol 32 mg/dL (>39); LDL/HDL RATIO 1.4; Low Density Lipoprotein Chol 46 mg/dL (0-110); Triglycerides 50 mg/dL (30-160); Very Low Density Lipoprot Chol 10 mg/dL (6-32)
[2021-02-26 05:39] LABS: BASOPHILS PERCENT AUTO 1 % (0-2); EOSINOPHILS ABSOLUTE AUTO 0.14 K/mm3 (0.00-0.68); EOSINOPHILS PERCENT AUTO 2 % (0-6); Hematocrit 33.9 % (37.0-53.0); Hemoglobin 10.9 g/dL (13.5-17.5); IMMATURE GRAN ABSOLUTE AUTO 0.02 K/mm3 (0.00-0.10); IMMATURE GRAN PERCENT AUTO 0 % (0-1); LYMPHOCYTES ABSOLUTE AUTO 3.29 K/mm3 (0.84-5.20); LYMPHOCYTES PERCENT AUTO 43 % (21-46); MONOCYTES ABSOLUTE AUTO 0.53 K/mm3 (0.16-1.47); MONOCYTES PERCENT AUTO 7 % (4-13); Mean Corpuscular HGB 24.7 pg (26.0-34.0); Mean Corpuscular HGB Conc 32.2 g/dL (31.5-36.5); Mean Corpuscular Volume 77 fL (80-100); Mean Platelet Volume 9.7 fL (9.1-12.4); NEUTROPHILS ABSOLUTE AUTO 3.59 K/mm3 (1.96-9.15); NEUTROPHILS PERCENT AUTO 47 % (41-73); Platelet Count 231 K/mm3 (150-400); RDW Coefficient Variation 16.9 % (11.7-14.2); RDW Standard Deviation 46.9 fL (35.1-46.3); Red Blood Cell Count 4.42 M/mm3 (4.30-5.90); White Blood Cell Count 7.67 K/mm3 (4.00-11.30)
[2021-02-26 06:07] LABS: Anion Gap 12 mmol/L (6-16); Blood Urea Nitrogen 30 mg/dL (8-24); Bun/Creatinine Ratio 29.1 (12.0-20.0); CO2, Blood 20 mmol/L (21-32); Calcium, Blood 8.2 mg/dL (8.5-10.1); Chloride, Blood 107 mmol/L (98-108); Creatinine, Blood 1.03 mg/dL (0.60-1.20); Glomerular Filtration Rate >60 (60-); Glucose, Blood 138 mg/dL (70-99); Potassium, Blood 3.7 mmol/L (3.5-5.5); Sodium, Blood 139 mmol/L (136-145)
--- NOTE | 2021-02-26 07:13 | NUR ---
SHIFT SUMMARY PATIENT ADMITTED TO FLOOR SHORTLY AFTER SHIFT AT APPROXIMETLY 2000. FOUND TO BE A&OX4 AND PLESANT WITH CARE. 5/10 CP UPON ARRIVAL AND NITROX3 GIVEN WITH NO CHANGE IN PAIN. FENTANYL GAVE SOME RELIEF AND BROUGHT PAIN TO 4/10 SHARP PAIN RADIATING DOWN LEFT ARM. ADDED TRAMADOL THIS AM WHEN NO RELIEF WITH OTHER INTERVENTIONS. VSS. ON RA. GOOD APPETITE. GOOD OUPUT VOIDING PER URINAL AFTER LASIX GIVEN. UP IND IN ROOM. HEPARIN RUNNING PER ORDER. CARDIOLOGY CONSULTED AND TO SEE THIS AM. NO ACUTE CONCERNS AT THIS TIME. REPORT GIVEN TO AL MEDINA AND CARE ENDORSED TO HIM.
--- NOTE | 2021-02-26 15:42 | NUR ---
DISCHARGE NOTE PT WAS GIVEN DISCHARGE INSTRUCTIONS AND CONSENTED. ALL QUESTIONS AND CONCERNS WERE ADDRESSED AND PT STATED SATISFACTION. DISCHARGE INSTRUCTIONS AND PERSONAL BELONGINGS IN PT'S POSSESSION AT TIME OF TRANSPORT. PT TRANSPORTED BY WHEELCHAIR TO PERSONAL VEHICLE, PT AMBULATED INDEPENDENTLY TO AND FROM CHAIR.
== END 2021-02-26 15:34 | disposition home or self-care (01) | DRG 291 ==
LOC: ER 17:30 → PCU 20:17
PROVIDERS: Pharmacist; Physician Assistant; ADMIT Family Medicine
DX: I11.0 Hypertensive heart disease with heart failure (principal); I50.33 Acute on chronic diastolic (congestive) heart failure; I50.811 Acute right heart failure; R77.8 Other specified abnormalities of plasma proteins; I27.21 Secondary pulmonary arterial hypertension; F41.9 Anxiety disorder, unspecified; Z88.6 Allergy status to analgesic agent; Z88.1 Allergy status to other antibiotic agents; Z60.2 Problems related to living alone; Z88.8 Allergy status to other drugs, medicaments and biological substances; Z28.21 Immunization not carried out because of patient refusal; Z79.899 Other long term (current) drug therapy; Z86.718 Personal history of other venous thrombosis and embolism; Z86.711 Personal history of pulmonary embolism; Z90.49 Acquired absence of other specified parts of digestive tract; Z98.890 Other specified postprocedural states; Z98.84 Bariatric surgery status; Z87.891 Personal history of nicotine dependence; Z79.82 Long term (current) use of aspirin
CPT/HCPCS: 36415; 71260; 80048; 80053; 80061; 83690; 83880; 84484; 85025; 85520; 85610; 85730; 93005; 93010; 93306; 96374-59; 99285-25; A9270; J1644; J1940; J2550; J3010; Q9967

== ENCOUNTER 2021-03-02 13:30 | Emergency (ER) | payer MEDICARE ==
[~2021-03-02] VITALS: Ht 193 cm; Wt 90.7 kg
[~2021-03-02 13:30] MED LIST changes: +ASPI81CH PO; +Calcium Carbon500 MG PO; +MULVITA PO; +VITAMIN D33000 UNIT PO; +ZINC220 PO
[2021-03-02 14:18] LABS: BASOPHILS ABSOLUTE AUTO 0.06 K/mm3 (0.00-0.23); BASOPHILS PERCENT AUTO 1 % (0-2); EOSINOPHILS ABSOLUTE AUTO 0.06 K/mm3 (0.00-0.68); EOSINOPHILS PERCENT AUTO 1 % (0-6); Hematocrit 35.7 % (37.0-53.0); Hemoglobin 11.5 g/dL (13.5-17.5); IMMATURE GRAN ABSOLUTE AUTO 0.03 K/mm3 (0.00-0.10); IMMATURE GRAN PERCENT AUTO 1 % (0-1); LYMPHOCYTES ABSOLUTE AUTO 1.86 K/mm3 (0.84-5.20); LYMPHOCYTES PERCENT AUTO 32 % (21-46); MONOCYTES ABSOLUTE AUTO 0.56 K/mm3 (0.16-1.47); MONOCYTES PERCENT AUTO 10 % (4-13); Mean Corpuscular HGB 24.8 pg (26.0-34.0); Mean Corpuscular HGB Conc 32.2 g/dL (31.5-36.5); Mean Corpuscular Volume 77 fL (80-100); Mean Platelet Volume 10.3 fL (9.1-12.4); NEUTROPHILS ABSOLUTE AUTO 3.26 K/mm3 (1.96-9.15); NEUTROPHILS PERCENT AUTO 56 % (41-73); Platelet Count 244 K/mm3 (150-400); RDW Standard Deviation 46.3 fL (35.1-46.3); Red Blood Cell Count 4.64 M/mm3 (4.30-5.90); White Blood Cell Count 5.83 K/mm3 (4.00-11.30)
[2021-03-02 15:10] LABS: Magnesium, Blood 2.2 mg/dL (1.6-2.4); Phosphorus, Blood 3.4 mg/dL (2.5-4.9)
[2021-03-02 15:13] LABS: Alanine Aminotransfer (ALT/SGP 62 U/L (12-78); Albumin, Blood 3.2 g/dL (3.4-5.0); Alk Phos 108 U/L (50-136); Anion Gap 7 mmol/L (6-16); Aspartate Aminotrans (AST/SGOT 51 U/L (12-37); Bilirubin, Total 1.3 mg/dL (0.1-1.0); Blood Urea Nitrogen 30 mg/dL (8-24); CO2, Blood 25 mmol/L (21-32); Calcium, Blood 8.2 mg/dL (8.5-10.1); Chloride, Blood 106 mmol/L (98-108); Creatinine, Blood 1.11 mg/dL (0.60-1.20); Globulin, Blood 3.1 g/dL (2.2-4.0); Glomerular Filtration Rate >60 (60-); Glucose, Blood 55 mg/dL (70-99); Potassium, Blood 4.4 mmol/L (3.5-5.5); Sodium, Blood 138 mmol/L (136-145); Total Protein, Blood 6.3 g/dL (6.4-8.2); Troponin I 0.062 ng/mL (0.000-0.040)
[2021-03-02] MEDS ORDERED: Iron Chews15 MG PO (17:15)
== END 2021-03-02 18:10 | disposition home or self-care (01) ==
LOC: ER 13:30
PROVIDERS: Physician Assistant
DX: I50.9 Heart failure, unspecified (principal); I27.20 Pulmonary hypertension, unspecified; D50.9 Iron deficiency anemia, unspecified; Z87.891 Personal history of nicotine dependence; Z79.899 Other long term (current) drug therapy
CPT/HCPCS: 36415; 71046; 71260; 80053; 83540; 83550; 83735; 83880; 84100; 84484; 85025; 93005; 93010; 96374; 99285-25; J1940; Q9967

== ENCOUNTER 2021-07-07 21:36 | Observation (INO) | payer MEDICARE ==
[~2021-07-07] VITALS: Ht 182.9 cm; Wt 81.5 kg
[~2021-07-07 21:36] MED LIST changes: +AMBRISENTAN10 MG PO; +Iron Chews15 MG PO; +ONDA4 PO
[2021-07-07 22:23] LABS: BASOPHILS ABSOLUTE AUTO 0.02 K/mm3 (0.00-0.23); BASOPHILS PERCENT AUTO 0 % (0-2); EOSINOPHILS ABSOLUTE AUTO 0.07 K/mm3 (0.00-0.68); EOSINOPHILS PERCENT AUTO 1 % (0-6); Hematocrit 31.5 % (37.0-53.0); Hemoglobin 11.2 g/dL (13.5-17.5); IMMATURE GRAN ABSOLUTE AUTO 0.03 K/mm3 (0.00-0.10); IMMATURE GRAN PERCENT AUTO 1 % (0-1); LYMPHOCYTES ABSOLUTE AUTO 1.09 K/mm3 (0.84-5.20); LYMPHOCYTES PERCENT AUTO 20 % (21-46); MONOCYTES PERCENT AUTO 7 % (4-13); Mean Corpuscular HGB 28.9 pg (26.0-34.0); Mean Corpuscular HGB Conc 35.6 g/dL (31.5-36.5); Mean Corpuscular Volume 81 fL (80-100); NEUTROPHILS ABSOLUTE AUTO 3.93 K/mm3 (1.96-9.15); NEUTROPHILS PERCENT AUTO 71 % (41-73); Platelet Count 134 K/mm3 (150-400); RDW Coefficient Variation 18.6 % (11.7-14.2); RDW Standard Deviation 54.8 fL (35.1-46.3); Red Blood Cell Count 3.88 M/mm3 (4.30-5.90); White Blood Cell Count 5.54 K/mm3 (4.00-11.30)
[2021-07-07 22:33] LABS: Mean Platelet Volume 11.6 fL (9.1-12.4)
[2021-07-07 22:52] LABS: Albumin, Blood 2.6 g/dL (3.4-5.0); Albumin/Globulin Ratio 1.2 (0.8-1.8); Bilirubin, Total 0.7 mg/dL (0.1-1.0); Calcium, Blood 6.3 mg/dL (8.5-10.1); Creatinine, Blood 0.59 mg/dL (0.60-1.20); Globulin, Blood 2.2 g/dL (2.2-4.0); Potassium, Blood 2.1 mmol/L (3.5-5.5); Total Protein, Blood 4.8 g/dL (6.4-8.2)
[2021-07-07 23:34] LABS: Magnesium, Blood 1.2 mg/dL (1.6-2.4)
[2021-07-08 01:44] LABS: Source, Urine Clean Catch
[2021-07-08 01:47] LABS: Bilirubin, Urine Neg (Neg); Blood, Urine Neg (Neg); Glucose Qualitative, Urine Neg (Neg); Ketones, Urine 1+ (Neg); Leukocyte Esterase, Urine Neg (Neg); Nitrite, Urine Neg (Neg); Protein, Urine 1+ (Neg); Specific Gravity, Urine 1.015 (1.003-1.022); Urobilinogen, Urine NORM (Normal)
[2021-07-08 02:48] LABS: Appearance, Urine Clear (Clear); Color, Urine Yellow (P-Yellow)
[2021-07-08 04:46] LABS: Bun/Creatinine Ratio 25.7 (12.0-20.0); Creatinine, Blood 0.82 mg/dL (0.60-1.20)
[2021-07-08 04:53] LABS: Calcium, Blood 9.1 mg/dL (8.5-10.1)
--- NOTE | 2021-07-08 13:47 | NUR ---
PATIENT STATED "I FEEL LIKE MY BLOOD SUGAR IS LOW. I FEEL SHAKEY LIKE WHAT HAS HAPPENED BEFORE". CHECKED CBG AND IT CAME OUT 36. GAVE THE PATIENT ORANGE JUICE, CHEESE, AND PRITESH CRACKERS. PATIENT ALSO SELF MEDICATED WITH ONE GLUCOSE TABLET THAT HE HAD. AFTER HAVING A FEW BITES PATIENT STATED "I'M ALREADY STARTING TO FEEL LESS SHAKEY. THIS SOMETIMES HAPPENS TO ME AND I ONLY KNOW ITS HAPPENING WHEN I'M SHAKEY". THIS NURSE TRIED CALLING DR. Wright AND DR. MAYORGA BUT WENT TO VOICEMAIL. WILL CONTINUE TO MONITOR BLOOD SUGAR AND PATIENTS SYMPTOMS UNTIL WE ARE ABLE TO GET AHOLD OF EITHER HOSPITALIST/RESIDENT. PATIENT IS LAYING DOWN IN BED AND EATING. CALL LIGHT WITHIN REACH.
--- NOTE | 2021-07-08 14:12 | NUR ---
RE-CHECKED HIS BLOOD SUGAR AND IT CLIMBED UP TO 143. PATIENT REPORTED "I'M FEELING MUCH BETTER AND I'M NOT SHAKEY ANYMORE". PATIENT IS NOW RESTING IN BED. CALL LIGHT IN REACH. BROTHER AT BEDSIDE. CALLED DR. VILLA SINCE DR. Wright IS IN CLINIC AND HE REPORTED THAT HE WILL COME TALK TO PATIENT AT BEDSIDE.
--- NOTE | 2021-07-08 14:39 | NUR ---
DISCHARGE NOTE: PATIENT AND BROTHER WERE EDUCATED ON DISCHARGE INSTRUCTIONS. BOTH VERBALIZED UNDERSTANDING OF INSTRUCTIONS. IV WAS TAKEN OUT AND WNL. PATIENT IS VOIDING AND TOLERATING PO INTAKE. HE IS INDEP. WALKING IN THE ROOM THROUGHOUT SHIFT. LABS WERE CHECKED PRIOR TO DISCHARGE AND HIS MAGNESIUM LEVELS CAME BACK UP WELL HIS POTASSIUM. PATIENT WAS EDUCATED ON THE BLOOD GLUCOSE INCIDENT WITH THIS NURSE AND DR. CURRAN WHO WAS COVERING FOR DR. VILLA HOW HE NEEDS TO FOLLOW UP AND TELL HIS PCP ABOUT THIS. PATIENT AGREED AND VERBALIZED UNDERSTANDING. PATIENT IS DRESSED AND HAS PERSONAL ITEMS IN THE ROOM GATHERED. PATIENT REFUSED USING A WHEELCHAIR AND WALKED OUT WITH BROTHER.
[2021-07-09] MEDS ORDERED: PROM25 PO (14:41)
[2021-07-09] MEDS ORDERED: OXYACE7.5T PO (14:41)
== END 2021-07-08 14:34 | disposition home or self-care (01) ==
LOC: ER 21:36 → PCU 21:37
PROVIDERS: Emergency Medicine; ADMIT Internal Medicine
DX: R11.2 Nausea with vomiting, unspecified (principal); E87.6 Hypokalemia; R10.9 Unspecified abdominal pain; I11.0 Hypertensive heart disease with heart failure; I50.30 Unspecified diastolic (congestive) heart failure; I27.21 Secondary pulmonary arterial hypertension; Z53.29 Procedure and treatment not carried out because of patient's decision for other reasons
CPT/HCPCS: 36415; 74019; 80048; 80053; 82947; 83690; 83735; 85025; 93005; 93010; 96365; 96366; 96372; 96375; 96376; 99285-25; A9270; G0378; J1650; J1790; J1885; J2405; J3475; J3480; J7040; J7050

== ENCOUNTER 2021-07-09 12:06 | Emergency (ER) | payer MEDICARE ==
[~2021-07-09] VITALS: Ht 193 cm; Wt 83.9 kg
[2021-07-09 13:20] LABS: Albumin, Blood 4.3 g/dL (3.4-5.0); Albumin/Globulin Ratio 1.3 (0.8-1.8); Bilirubin, Total 1.2 mg/dL (0.1-1.0); Bun/Creatinine Ratio 18.4 (12.0-20.0); Calcium, Blood 9.4 mg/dL (8.5-10.1); Creatinine, Blood 0.76 mg/dL (0.60-1.20); Globulin, Blood 3.4 g/dL (2.2-4.0); Potassium, Blood 3.8 mmol/L (3.5-5.5)
[2021-07-09 13:24] LABS: Total Protein, Blood 7.7 g/dL (6.4-8.2)
[2021-07-09 14:04] LABS: BASOPHILS ABSOLUTE AUTO 0.02 K/mm3 (0.00-0.23); BASOPHILS PERCENT AUTO 0 % (0-2); EOSINOPHILS PERCENT AUTO 0 % (0-6); Hematocrit 44.7 % (37.0-53.0); Hemoglobin 15.5 g/dL (13.5-17.5); IMMATURE GRAN ABSOLUTE AUTO 0.01 K/mm3 (0.00-0.10); IMMATURE GRAN PERCENT AUTO 0 % (0-1); LYMPHOCYTES ABSOLUTE AUTO 0.59 K/mm3 (0.84-5.20); LYMPHOCYTES PERCENT AUTO 12 % (21-46); MONOCYTES ABSOLUTE AUTO 0.17 K/mm3 (0.16-1.47); MONOCYTES PERCENT AUTO 3 % (4-13); Mean Corpuscular HGB 28.3 pg (26.0-34.0); Mean Corpuscular HGB Conc 34.7 g/dL (31.5-36.5); Mean Corpuscular Volume 82 fL (80-100); NEUTROPHILS ABSOLUTE AUTO 4.16 K/mm3 (1.96-9.15); NEUTROPHILS PERCENT AUTO 84 % (41-73); Platelet Count 167 K/mm3 (150-400); RDW Standard Deviation 55.7 fL (35.1-46.3); Red Blood Cell Count 5.47 M/mm3 (4.30-5.90); White Blood Cell Count 4.95 K/mm3 (4.00-11.30)
[2021-07-09 14:06] LABS: Mean Platelet Volume 11.7 fL (9.1-12.4)
[2021-07-09] MEDS ORDERED: OXYACE7.5T PO (14:41)
[2021-07-09] MEDS ORDERED: PROM25 PO (14:41)
== END 2021-07-09 15:10 | disposition home or self-care (01) ==
LOC: ER 12:06
PROVIDERS: Emergency Medicine
DX: K29.70 Gastritis, unspecified, without bleeding (principal); I11.0 Hypertensive heart disease with heart failure; I50.9 Heart failure, unspecified; Z95.1 Presence of aortocoronary bypass graft; Z88.8 Allergy status to other drugs, medicaments and biological substances; Z79.899 Other long term (current) drug therapy; Z79.82 Long term (current) use of aspirin; Z87.891 Personal history of nicotine dependence
CPT/HCPCS: 36415; 80053; 83690; 85025; 99283

== ENCOUNTER 2021-07-11 18:20 | Emergency (ER) | payer MEDICARE ==
[~2021-07-11] VITALS: Ht 193 cm; Wt 81.2 kg
[2021-07-11 19:03] LABS: BASOPHILS ABSOLUTE AUTO 0.06 K/mm3 (0.00-0.23); BASOPHILS PERCENT AUTO 1 % (0-2); EOSINOPHILS ABSOLUTE AUTO 0.08 K/mm3 (0.00-0.68); EOSINOPHILS PERCENT AUTO 1 % (0-6); Hematocrit 43.7 % (37.0-53.0); Hemoglobin 15.6 g/dL (13.5-17.5); IMMATURE GRAN ABSOLUTE AUTO 0.01 K/mm3 (0.00-0.10); IMMATURE GRAN PERCENT AUTO 0 % (0-1); LYMPHOCYTES ABSOLUTE AUTO 2.83 K/mm3 (0.84-5.20); LYMPHOCYTES PERCENT AUTO 37 % (21-46); MONOCYTES ABSOLUTE AUTO 0.66 K/mm3 (0.16-1.47); MONOCYTES PERCENT AUTO 9 % (4-13); Mean Corpuscular HGB 28.7 pg (26.0-34.0); Mean Corpuscular HGB Conc 35.7 g/dL (31.5-36.5); Mean Corpuscular Volume 81 fL (80-100); Mean Platelet Volume 10.3 fL (9.1-12.4); NEUTROPHILS ABSOLUTE AUTO 4.06 K/mm3 (1.96-9.15); NEUTROPHILS PERCENT AUTO 53 % (41-73); Platelet Count 215 K/mm3 (150-400); RDW Coefficient Variation 18.5 % (11.7-14.2); RDW Standard Deviation 53.7 fL (35.1-46.3); Red Blood Cell Count 5.43 M/mm3 (4.30-5.90)
[2021-07-11 19:22] LABS: Albumin, Blood 4.5 g/dL (3.4-5.0); Albumin/Globulin Ratio 1.2 (0.8-1.8); Bun/Creatinine Ratio 26.1 (12.0-20.0); Creatinine, Blood 0.92 mg/dL (0.60-1.20); Globulin, Blood 3.7 g/dL (2.2-4.0); Potassium, Blood 3.4 mmol/L (3.5-5.5); Total Protein, Blood 8.2 g/dL (6.4-8.2)
[2021-07-11] MEDS ORDERED: PROM25 PO (22:17)
== END 2021-07-11 22:46 | disposition home or self-care (01) ==
LOC: ER 18:20
PROVIDERS: Emergency Medicine
DX: R10.9 Unspecified abdominal pain (principal); G89.29 Other chronic pain; I50.9 Heart failure, unspecified; Z86.718 Personal history of other venous thrombosis and embolism; Z86.711 Personal history of pulmonary embolism; Z79.82 Long term (current) use of aspirin; Z79.899 Other long term (current) drug therapy; Z87.891 Personal history of nicotine dependence
CPT/HCPCS: 71045; 80053; 83690; 83880; 84484; 85025; 93005; 93010; J1170; J2405; J2550; J7030

== ENCOUNTER → 2024-03-09 | Outpatient (CLI) | payer MEDICARE ==
[~2024-03-09] MED LIST changes: +SILD25T PO
[2024-03-09 18:43] LABS: Creatinine Urine 23.1 mg/dL (27.00-270.00); Protein, Urine Quantitative 17.4 mg/dL (0.0-11.9)
== END ==
LOC: LAB 16:49 → LAB SHORT 16:49 → LAB FUT 03-08 13:00
PROVIDERS: Internal Medicine Nephrology
DX: N18.2 Chronic kidney disease, stage 2 (mild) (principal); D63.1 Anemia in chronic kidney disease; N25.81 Secondary hyperparathyroidism of renal origin; E55.9 Vitamin D deficiency, unspecified; E78.00 Pure hypercholesterolemia, unspecified; R76.9 Abnormal immunological finding in serum, unspecified; R94.5 Abnormal results of liver function studies; R94.6 Abnormal results of thyroid function studies; D51.8 Other vitamin B12 deficiency anemias; D52.8 Other folate deficiency anemias; D50.9 Iron deficiency anemia, unspecified
CPT/HCPCS: 81050; 82043; 82570; 84156

== ENCOUNTER → 2024-03-22 | Outpatient (CLI) | payer MEDICARE ==
[2024-03-22 18:12] LABS: Potassium, Blood 2.7 mmol/L (3.5-5.5)
== END ==
LOC: LAB SHORT 15:58 → LAB 15:58
PROVIDERS: Nurse Practitioner Family
DX: E87.6 Hypokalemia (principal)
CPT/HCPCS: 80051

== ENCOUNTER 2024-05-03 20:48 | Inpatient (IN) | payer MEDICARE, OTHER ==
[~2024-05-03] VITALS: Ht 193 cm; Wt 81.1 kg
[2024-05-03 21:05] LABS: BASOPHILS ABSOLUTE AUTO 0.06 K/mm3 (0.00-0.23); BASOPHILS PERCENT AUTO 1 % (0-2); EOSINOPHILS ABSOLUTE AUTO 0.08 K/mm3 (0.00-0.68); EOSINOPHILS PERCENT AUTO 1 % (0-6); Hematocrit 41.4 % (37.0-53.0); Hemoglobin 14.1 g/dL (13.5-17.5); IMMATURE GRAN ABSOLUTE AUTO 0.03 K/mm3 (0.00-0.10); IMMATURE GRAN PERCENT AUTO 0 % (0-1); LYMPHOCYTES ABSOLUTE AUTO 1.47 K/mm3 (0.84-5.20); LYMPHOCYTES PERCENT AUTO 22 % (21-46); MONOCYTES ABSOLUTE AUTO 0.57 K/mm3 (0.16-1.47); MONOCYTES PERCENT AUTO 9 % (4-13); Mean Corpuscular HGB 31.3 pg (26.0-34.0); Mean Corpuscular HGB Conc 34.1 g/dL (31.5-36.5); Mean Corpuscular Volume 92 fL (80-100); Mean Platelet Volume 9.6 fL (9.1-12.4); NEUTROPHILS ABSOLUTE AUTO 4.49 K/mm3 (1.96-9.15); NEUTROPHILS PERCENT AUTO 67 % (41-73); Platelet Count 148 K/mm3 (150-400); RDW Coefficient Variation 15.6 % (11.7-14.2); RDW Standard Deviation 52.2 fL (35.1-46.3)
[2024-05-03 21:24] LABS: Albumin/Globulin Ratio 1.1 (0.8-1.8); Bilirubin, Total 0.8 mg/dL (0.1-1.0); Bun/Creatinine Ratio 22.1 (12.0-20.0); Calcium, Blood 8.3 mg/dL (8.5-10.1); Creatinine, Blood 1.36 mg/dL (0.60-1.20); Globulin, Blood 2.7 g/dL (2.2-4.0); Potassium, Blood 4.4 mmol/L (3.5-5.5); Total Protein, Blood 5.7 g/dL (6.4-8.2)
[2024-05-03] MEDS ORDERED: ALPRAZolam 0.5 MG Tab PO ONE (22:25)
[2024-05-03 22:34] LABS: Magnesium, Blood 2.7 mg/dL (1.6-2.4); Phosphorus, Blood 4.6 mg/dL (2.5-4.9)
[2024-05-03] MEDS ORDERED: FLU VACC TS2024-25(6MOS UP)/PF 45 MCG/0.5 ML SYRINGE IM ONE (23:25)
[2024-05-03] MEDS ORDERED: Colchicine 0.6 MG TAB PO ONE (23:30)
[2024-05-03] MEDS ORDERED: Furosemide 10 MG/ML 4ML Vial IV SCH (23:34)
[2024-05-03] MEDS ORDERED: DiphenhydrAMINE HCl 50 MG/ML 1ML Vial IV ONE (23:50)
[2024-05-04 00:56] VITALS: BP 99/77
[2024-05-04] MEDS ORDERED: Oxycodone HCl20 M1 PO (01:11)
[2024-05-04] MEDS ORDERED: POTCHL20ER PO (01:13)
[2024-05-04] MEDS ORDERED: OxyCODONE HCL 5 MG TAB PO ONE (02:00)
--- NOTE | 2024-05-04 02:00 | NUR ---
ADMIT NOTE HANDOFF RECEIVED FROM RESIDENTIAL TECH NARINDER. PT ARRIVED TO FLOOR VIA WC. TELEMETRY NOW IN PLACE: TACH @ BPM. PERSONAL POSSESSIONS WITH PT. PT ORIENTED TO UNIT. CALL BUTTON WITHIN REACH. PT ASKED TO EAT FOOD AND CONSUMED IT, IMMEDIATELY AFTERWARD HE STARTED EXPRESSING SEVERE PAIN IN HIS ABDOMEN. HE STATED HE HAS TO TAKE PAIN PILLS WITH MEALS DUE TO GASTRIC BYPASS COMPLICATIONS. I CALLED HOSPITALIST AND INFORMED HIM. NEW ORDERS IN EMAR.
[2024-05-04] MEDS ORDERED: Promethazine HCl 25 MG Tab PO PRN (02:15)
[2024-05-04 03:37] VITALS: BP 93/61
--- NOTE | 2024-05-04 04:13 | NUR ---
SHIFT SUMMARY ADMITTED FOR CHEST PAIN/DYSPNEA. DNR CODE. WE ARE MONITORING HIS CARDIAC SITUATION. TELEMETRY: TACHY @ 104 BPM. WE ARE DIURESING HIM. STRICT I&O'S AND DAILY WEIGHTS. HE DOES STATE A RECENT RAPID WEIGHT GAIN OF 10 LBS. HE IS A&O X4, INDEPENDENT. CARDIAC DIET. ON RA. HX: CHF, GASTRIC BYPASS WITH COMPLICATIONS, ANXIETY. PAIN AND NAUSEA MEDICATION GIVEN THIS SHIFT. THIS WAS EFFECTIVE.
[2024-05-04 05:21] LABS: BASOPHILS ABSOLUTE AUTO 0.06 K/mm3 (0.00-0.23); BASOPHILS PERCENT AUTO 1 % (0-2); EOSINOPHILS ABSOLUTE AUTO 0.08 K/mm3 (0.00-0.68); EOSINOPHILS PERCENT AUTO 1 % (0-6); Hematocrit 38.4 % (37.0-53.0); Hemoglobin 13.3 g/dL (13.5-17.5); IMMATURE GRAN ABSOLUTE AUTO 0.03 K/mm3 (0.00-0.10); IMMATURE GRAN PERCENT AUTO 0 % (0-1); LYMPHOCYTES ABSOLUTE AUTO 1.01 K/mm3 (0.84-5.20); LYMPHOCYTES PERCENT AUTO 14 % (21-46); MONOCYTES ABSOLUTE AUTO 0.59 K/mm3 (0.16-1.47); MONOCYTES PERCENT AUTO 8 % (4-13); Mean Corpuscular HGB 31.4 pg (26.0-34.0); Mean Corpuscular HGB Conc 34.6 g/dL (31.5-36.5); Mean Corpuscular Volume 91 fL (80-100); NEUTROPHILS ABSOLUTE AUTO 5.25 K/mm3 (1.96-9.15); NEUTROPHILS PERCENT AUTO 75 % (41-73); Platelet Count 129 K/mm3 (150-400); RDW Coefficient Variation 15.6 % (11.7-14.2); Red Blood Cell Count 4.24 M/mm3 (4.30-5.90); White Blood Cell Count 7.02 K/mm3 (4.00-11.30)
[2024-05-04 05:53] LABS: Albumin, Blood 2.6 g/dL (3.4-5.0); Albumin/Globulin Ratio 1.1 (0.8-1.8); Bilirubin, Total 0.7 mg/dL (0.1-1.0); Calcium, Blood 8.1 mg/dL (8.5-10.1); Creatinine, Blood 1.35 mg/dL (0.60-1.20); Globulin, Blood 2.4 g/dL (2.2-4.0); Potassium, Blood 3.7 mmol/L (3.5-5.5)
[2024-05-04] MEDS ORDERED: OxyCODONE HCL 5 MG TAB PO SCH (07:30)
[2024-05-04 07:54] VITALS: BP 94/67
[2024-05-04] MEDS ORDERED: Enoxaparin 40 MG/0.4 ML SYR SC SCH (09:00)
[2024-05-04] MEDS ORDERED: Aspirin 81 MG Chew PO SCH (09:00)
[2024-05-04] MEDS ORDERED: Colchicine 0.6 MG TAB PO SCH (09:00)
[2024-05-04] MEDS ORDERED: Misc. Tablet PO SCH (09:00)
[2024-05-04] MEDS ORDERED: Sildenafil Citrate 20 MG Tab PO SCH (09:00)
[2024-05-04] MEDS ORDERED: LORazepam 1 MG Tab PO PRN (12:35)
[2024-05-04 15:19] VITALS: BP 100/68
[2024-05-04] MEDS ORDERED: Enoxaparin 150 MG/ML 1ML SYR SC SCH (15:55)
[2024-05-04] MEDS ORDERED: Promethazine HCl 25 MG Tab PO SCH (16:30)
[2024-05-04] MEDS ORDERED: Calcium Carbonate 500 MG Tab Chew PO PRN (16:50)
[2024-05-04] MEDS ORDERED: Pantoprazole Sodium 40 MG Injection IV SCH (17:10)
--- NOTE | 2024-05-04 17:53 | NUR ---
PT IS ALERT AND ORIENTED X4, CALLS APPROPRIATELY. INDEPENDENT IN THE ROOM. ADALBERTO LAM. PT C/O SEVERE HEART BURN. TREATED PER EMAR. ADVISE PT TO LIMIT FLUIDS. DAILY WEIGHT, STRICT I/O. 2L NC O2 SAT> 92%. PT MAY REQUIRE HOME O2 EVAL ON DISCHARGE. ANXIETY TREATED PER EMAR.
[2024-05-04] MEDS ORDERED: Torsemide 20 MG TAB PO SCH (18:00)
[2024-05-04 19:53] VITALS: BP 102/71
[2024-05-04] MEDS ORDERED: FentaNYL Citrate 50 MCG/ML 2 ML Injection IV ONE (20:20)
[2024-05-04] MEDS ORDERED: Mag Hydrox/Al Hydrox/Simeth 18 ML,Lidocaine 2% Viscous Soln 9 ML,Atropine/Scopalam/Hyos... PO ONE (22:10)
[2024-05-04 23:05] VITALS: BP 96/65
[2024-05-05 03:31] VITALS: BP 92/66
[2024-05-05 05:26] LABS: BASOPHILS ABSOLUTE AUTO 0.09 K/mm3 (0.00-0.23); BASOPHILS PERCENT AUTO 1 % (0-2); EOSINOPHILS ABSOLUTE AUTO 0.12 K/mm3 (0.00-0.68); EOSINOPHILS PERCENT AUTO 2 % (0-6); Hematocrit 40.1 % (37.0-53.0); Hemoglobin 13.6 g/dL (13.5-17.5); IMMATURE GRAN ABSOLUTE AUTO 0.03 K/mm3 (0.00-0.10); IMMATURE GRAN PERCENT AUTO 0 % (0-1); LYMPHOCYTES ABSOLUTE AUTO 1.74 K/mm3 (0.84-5.20); LYMPHOCYTES PERCENT AUTO 24 % (21-46); MONOCYTES ABSOLUTE AUTO 0.62 K/mm3 (0.16-1.47); MONOCYTES PERCENT AUTO 9 % (4-13); Mean Corpuscular HGB 31.2 pg (26.0-34.0); Mean Corpuscular HGB Conc 33.9 g/dL (31.5-36.5); Mean Corpuscular Volume 92 fL (80-100); Mean Platelet Volume 9.6 fL (9.1-12.4); NEUTROPHILS ABSOLUTE AUTO 4.52 K/mm3 (1.96-9.15); NEUTROPHILS PERCENT AUTO 64 % (41-73); Platelet Count 125 K/mm3 (150-400); RDW Coefficient Variation 15.5 % (11.7-14.2); RDW Standard Deviation 52.1 fL (35.1-46.3); Red Blood Cell Count 4.36 M/mm3 (4.30-5.90); White Blood Cell Count 7.12 K/mm3 (4.00-11.30)
[2024-05-05 05:57] LABS: Albumin, Blood 2.7 g/dL (3.4-5.0); Bilirubin, Total 0.8 mg/dL (0.1-1.0); Bun/Creatinine Ratio 23.3 (12.0-20.0); Calcium, Blood 8.4 mg/dL (8.5-10.1); Creatinine, Blood 1.5 mg/dL (0.60-1.20); Globulin, Blood 2.6 g/dL (2.2-4.0); Total Protein, Blood 5.3 g/dL (6.4-8.2)
[2024-05-05 07:20] VITALS: BP 101/71
[2024-05-05 11:49] VITALS: BP 99/73
[2024-05-05] MEDS ORDERED: Furosemide 10 MG/ML 4ML Vial IV SCH (12:00)
[2024-05-05 16:49] VITALS: BP 99/71
--- NOTE | 2024-05-05 18:30 | NUR ---
PER STATISTICAL PROGRAMMER ANALYST, PT HAVING SOME ST ELEVATION AND DEPRESSIONS. PT ASYMPTOMATIC AND REPORTS NO CHEST PAIN/PRESSURE, JUST TIRED. DR DEVRIES NOTIFIED.
--- NOTE | 2024-05-05 18:47 | NUR ---
SHIFT SUMMARY PT IS A/OX4. INDEPENDENT IN THE ROOM. ON 2L NC THROUGHOUT MOST OF THIS SHIFT, THIS EVENING PT REPORTING SOB AND TITRATED TO 5L NC. O2 SAT 94-95% USING CONT PULSE OX. ON TELE RUNNING NORMAL SINUS RYTHYM. THIS EVENING, PER SYSTEMS SOFTWARE DESIGNER, PT HAVING ST ELEVATIONS AND DEPRESSIONS. PT IS ASYMPTOMATIC. PT CALLS APPROPRIATELY USING THE CALL LIGHT.
[2024-05-05 19:31] VITALS: BP 111/78
[2024-05-05 23:06] VITALS: BP 102/65
[2024-05-06] MEDS ORDERED: FentaNYL Citrate 50 MCG/ML 2 ML Injection IV PRN (00:15)
--- NOTE | 2024-05-06 00:15 | NUR ---
PT REQUESING BREAK THROUGH PAIN MEDICATION. HOSPITALIST CALLED AND FENTANYL 25-50 MCG TO BE GIVEN PRN Q4 FOR SEVERE PAIN.
--- NOTE | 2024-05-06 02:08 | NUR ---
FENTANYL WAS GIVEN OVER AN HOUR AGO BUT PT IS STILL IN PAIN AND DOES NOT WANT FENTANYL BECAUSE IT DOESNT LAST LONG ENOUGH. I CALLED THE HOSPITALIST WHO ORDERED A ONE TIME DOSE OF 5MG ROXYCODONE TO GET THE PT BY UNTIL PT CAN HAVE SCHEDULED LONG.
[2024-05-06] MEDS ORDERED: OxyCODONE HCL 5 MG TAB PO ONE (02:10)
[2024-05-06 03:10] VITALS: BP 97/72
--- NOTE | 2024-05-06 04:17 | NUR ---
SHIFT SUMM: PT IS A 44 YO DNR WHO WAS ADMITTED FOR DYSPNEA. PT IS ON CONT PULSE OX AND 5 LITERS OF 02 THROUGHOUT THE NIGHT. PT HAS HAD COMPLAINTS OF PAIN AND NAUSEA (PT HAS BEEN MEDICATED PER EMAR).PT IS IND IN ROOM WITH SOME SBA WHEN HE FEELS LIGHT HEADED. PT IS ON TELE WITH NSR IN THE 90'S, BBB AND A 1ST DEG BLOCK. PT HAS BEEN SLEEPING THROUGHOUT THE SHIFT BUT WHEN HES AWAKE HES BEEN ASKING FOR BREAK THROUGH PAIN MEDICATION (SEE PREV NOTES). PT HAS CALL LIGHT IN REACH AND MAKES NEEDS KNOWN.
[2024-05-06 05:34] LABS: BASOPHILS ABSOLUTE AUTO 0.05 K/mm3 (0.00-0.23); BASOPHILS PERCENT AUTO 1 % (0-2); EOSINOPHILS ABSOLUTE AUTO 0.11 K/mm3 (0.00-0.68); EOSINOPHILS PERCENT AUTO 2 % (0-6); Hematocrit 39.2 % (37.0-53.0); Hemoglobin 13.6 g/dL (13.5-17.5); IMMATURE GRAN ABSOLUTE AUTO 0.03 K/mm3 (0.00-0.10); IMMATURE GRAN PERCENT AUTO 1 % (0-1); LYMPHOCYTES ABSOLUTE AUTO 1.31 K/mm3 (0.84-5.20); LYMPHOCYTES PERCENT AUTO 25 % (21-46); MONOCYTES ABSOLUTE AUTO 0.49 K/mm3 (0.16-1.47); MONOCYTES PERCENT AUTO 9 % (4-13); Mean Corpuscular HGB 31.6 pg (26.0-34.0); Mean Corpuscular HGB Conc 34.7 g/dL (31.5-36.5); Mean Corpuscular Volume 91 fL (80-100); Mean Platelet Volume 10.4 fL (9.1-12.4); NEUTROPHILS ABSOLUTE AUTO 3.33 K/mm3 (1.96-9.15); NEUTROPHILS PERCENT AUTO 63 % (41-73); Platelet Count 117 K/mm3 (150-400); RDW Coefficient Variation 15.6 % (11.7-14.2); RDW Standard Deviation 51.7 fL (35.1-46.3); White Blood Cell Count 5.32 K/mm3 (4.00-11.30)
[2024-05-06 06:11] LABS: Albumin, Blood 2.9 g/dL (3.4-5.0); Albumin/Globulin Ratio 1.2 (0.8-1.8); Bilirubin, Total 0.9 mg/dL (0.1-1.0); Bun/Creatinine Ratio 24.2 (12.0-20.0); Calcium, Blood 8.1 mg/dL (8.5-10.1); Creatinine, Blood 1.32 mg/dL (0.60-1.20); Globulin, Blood 2.5 g/dL (2.2-4.0); Total Protein, Blood 5.4 g/dL (6.4-8.2)
[2024-05-06 07:17] VITALS: BP 109/77
--- NOTE | 2024-05-06 09:45 | NUR ---
PATIENT STOPPED BY THE OFFICE. HE HAD QESTIONS ABOUT WHAT PALLIATIVE CARE MEANS. HE EXPRESSED THAT HE HAS CHF AND HAS BEEN INCREASINGLY SYMPTOMATIC, AND EXPIERENCING SOB. EXPLAINED THE ROLE OF PALLIATIVE CARE IN CHRONIC DISEASE MANAGMENT AND SYMPTOM CONTROL. HE HAS AN UPCOMING APT WITH [facility] PALLIATIVE CARE TEAM. HIS SISTER IS IN THE RN PROGRAM AND WAS TELLING HIM ABOUT THE COMBINATION OF MORPHINE AND ATIVAN FOR PATIENTS WITH CHF AND COPD. I EXPAINED THE USE OF THOSE MEDICATION AND HOW THEY CAN HELP WITH "AIR HUNGER" AND ANXIETY ASSOCIATED WITH THOSE. HE EXPRESSED RELUCTANCE THOSE MEDICATIONS SEEMED "EXTREME". WE DISCUSSED THAT THE OUTPATIENT PALLIATIVE CARE TEAM MAY MAKE SIMMILAR RECOMENDATIONS FOR SYMPTOM MANAGMENT, AND DISCUSSED PROS AND CONS OF USING THOSE MEDICATIONS. HE WAS PLESANT AND RECEPTIVE TO DISCUSSION AND EDUCATION. PC WILL CONTINUE TO SUPPORT NEEDED.
[2024-05-06 11:41] VITALS: BP 100/75
[2024-05-06] MEDS ORDERED: Albumin Human 50 ML IV SCH (12:26)
[2024-05-06] MEDS ORDERED: Metolazone 5 MG Tab PO SCH (13:00)
[2024-05-06] MEDS ORDERED: NS 250 ML IV PRN (13:50)
[2024-05-06] MEDS ORDERED: OxyCODONE HCL 5 MG TAB PO PRN (15:10)
[2024-05-06 15:37] VITALS: BP 100/73
[2024-05-06] MEDS ORDERED: Sildenafil Citrate 20 MG Tab PO SCH (16:00)
--- NOTE | 2024-05-06 18:00 | NUR ---
SUMMARY- PT A/O X4, INDEPENDANT, STEADY ON FEET. USES CALL LIGHT TO MAKE NEEDS KNOWN. PT AMBULATS TO BATHROOM AND IN THE [place] AT TIMES. PT BECOMES MOD DYSPNIC WITH ACTIVITY RELATED TO CHF HX. PUTS OXYGEN ON/OFF. WORKED OXYGEN FROM 5L DOWN TO 2L NC, ONLY USING INTERMITTANTLY WITH SOB. NO CRACKLES HEARD. PT HAS +2BLE EDEMA. ADDED ZAROXOLYN CONDURRENT WITH ALBUMIN WITH SEEMINGLY BETTER RESLUTS. PT TOLERATING FOOD AND FLUIDS. PAIN IS CONTROLLED WITH OXYCODONE SCHEDULED BEFORE ALL MEALS AND ADDED PRN DOSE FOR NIGHTS. PT STATES HE IS REGULAR WITH BOWEL MOVEMENTS AND HAD ONE YESTERDAY. TELE SR 90'S, ELEVATES WITH ACTIEITY. AFIBRILE. WILL REPORT TO TATIANNA RN
[2024-05-06 19:49] VITALS: BP 108/73
--- NOTE | 2024-05-07 01:23 | NUR ---
@HS PER STUDY ABROAD ADVISOR PT HAVING OCCASIONAL ST ELEVATIONS. TUNNEL ELASTIC OPERATOR CHAINSTITCH HOSPITALIST DR. SENIOR NOTIFIED. PT IS ASYMPTOMATIC. DENIES PAIN/PRESSURE AND SOB. PER KEEP MONITORING. NO NEW ORDERS.
--- NOTE | 2024-05-07 03:37 | NUR ---
SHIFT SUMMARY NO ACUTE EVENTS DURING THIS SHIFT. PT AWAKE T/O THE NIGHT HRS. MULTIPLE REQUESTS FOR OPIOID PAIN MEDICATIONS. PT EDUCATION OFFERED. O2 @2-3L PER PT REQUEST. O2 SAT'S>95% ON 2L VIA NC. PT DENIES SOB. PT CONTINUES TO HAVE ST ELEVATIONS AND DEPRESSIONS DURING THIS SHIFT. DR. SENIOR/ON-CALL HOSPITALIST NOTIFIED. NO NEW ORDERS, CONTINUE TO MONITOR. PT REPORTS 7/10 UPPER ABDOMINAL PAIN. MEDICATED PER EMAR. PT IS ON STRICT I&O'S, DAILY WT. GOOD PO FLUID INTAKE. BED AT THE LOWEST POSITION, CALL LIGHT W/I REACH. PT IS A/O X4, INDEPENDENT W/I THE HOSPITAL ROOM, COOPERATIVE WITH CARE AND ABLE TO MAKE HIS NEEDS KNOWN.
[2024-05-07 03:41] VITALS: BP 93/58
[2024-05-07 05:39] LABS: Hematocrit 37.2 % (37.0-53.0); Hemoglobin 13.4 g/dL (13.5-17.5); Mean Corpuscular HGB 31.6 pg (26.0-34.0); Mean Corpuscular Volume 88 fL (80-100); Mean Platelet Volume 10.5 fL (9.1-12.4); Platelet Count 126 K/mm3 (150-400); RDW Coefficient Variation 14.9 % (11.7-14.2); RDW Standard Deviation 47.2 fL (35.1-46.3); Red Blood Cell Count 4.24 M/mm3 (4.30-5.90); White Blood Cell Count 6.83 K/mm3 (4.00-11.30)
[2024-05-07 06:02] LABS: Albumin, Blood 3.2 g/dL (3.4-5.0); Albumin/Globulin Ratio 1.2 (0.8-1.8); Bilirubin, Total 1.3 mg/dL (0.1-1.0); Bun/Creatinine Ratio 29.4 (12.0-20.0); Calcium, Blood 8.4 mg/dL (8.5-10.1); Creatinine, Blood 1.19 mg/dL (0.60-1.20); Globulin, Blood 2.6 g/dL (2.2-4.0); Potassium, Blood 2.7 mmol/L (3.5-5.5); Total Protein, Blood 5.8 g/dL (6.4-8.2)
[2024-05-07 07:58] VITALS: BP 90/67
[2024-05-07] MEDS ORDERED: Potassium Chloride 10 Meq Tablet SA PO ONE (08:20)
[2024-05-07] MEDS ORDERED: Potassium Chloride 40 MEQ in NS 250 ML IV ONE (08:30)
[2024-05-07 08:38] LABS: Magnesium, Blood 2.2 mg/dL (1.6-2.4); Phosphorus, Blood 4.6 mg/dL (2.5-4.9)
[2024-05-07] MEDS ORDERED: Metolazone 5 MG Tab PO SCH (09:00)
[2024-05-07] MEDS ORDERED: Torsemide 20 MG TAB PO SCH (09:00)
[2024-05-07] MEDS ORDERED: Sodium Chloride 1 GM TAB PO SCH (11:30)
[2024-05-07 14:27] VITALS: BP 110/72
[2024-05-07 15:48] VITALS: BP 97/75
--- NOTE | 2024-05-07 18:03 | NUR ---
SHIFT SUMMARY PT IS A/OX4. NO ACUTE CHANGES THROUGHOUT THIS SHIFT. ON 3L NC, SATS MAINTAINING >90%. SOB WITH EXERTION. PT IS INDEPENDENT IN THE ROOM. CONTINUING TO DIURESIS BLOOD PRESSURES WILL ALLOW. ON TELE RUNNING NORMAL SINUS RYTHYM. REPEAT ECHO COMPLETED THIS MORNING. HYPOKALEMIC PER THIS MORNINGS LABS, PT RECIEVED PO AND IV POTASSIUM PER APR.
[2024-05-07 18:30] VITALS: BP 96/77
[2024-05-07 19:28] VITALS: BP 102/82
--- NOTE | 2024-05-07 22:27 | NUR ---
@HS PT HAS MULTIPLE REQUESTS FOR THIS CHIEF PHYSICAL THERAPIST. PT REQUESTING THAT THIS NURSE WOULD CALL THE ON-CALL HOSPITALIST R/T "GETTING DOUBLE DOSES ON PAIN MEDS " PER PT STATEMENT. PT WOULD LIKE TO GET OXYCODONE 5MG DOSE INCREASED TO OXYCODONE 10MG. PT REPORTS HAS A PAIN LEVEL 7/10 AT LUQ,RUQ. NOTED PT WALKING ON THE HALLWAYS. PT REPORTS HE NEEDS OXYCODONE BEFORE HE CAN EAT ANYTHING. NOTED THAT BETWEEN THE OXYCODONE DOSES, PT ABLE TO HAVE MULTIPLE SNACKS. PT EDUCATION GIVEN R/T MEDICATIONS, SIDE EFFECTS, PAIN MANAGMENT. ALSO ENCOURAGED THE PT TO HAVE THIS CONVERSTATION DURING THE DR. OLMEDO. PT IS REFUSING PRN IV FENTANYL D/T "IT DOESN'T LAST LONG" PER PT REPORT. WILL CONTACT THE ON-CALL HOSPITALIST DR. RIDDLE.
--- NOTE | 2024-05-07 22:37 | NUR ---
NEW ORDER RECEIVED FROM THE ON-CALL HOSPITALIST DR. RIDDLE: OXYCODONE 10MG PO ONE TIME. NO ADDITIONAL NEW ORDERS AT THIS TIME. ENTERED TO [place], SEE EMAR.
[2024-05-07] MEDS ORDERED: OxyCODONE HCL 5 MG TAB PO ONE (23:20)
[2024-05-08 01:14] VITALS: BP 97/64
--- NOTE | 2024-05-08 03:16 | NUR ---
SHIFT SUMMARY NO ACUTE DISTRESS/EVENTS DURING THIS SHIFT. ONE-TIME ORDER OF NORCO 10MG PO RECEIVED FROM THE ON-CALL HOSPITALIST. ADMINISTERED ORDERED. PT REPORTS NOT BEING ABLE TO EAT W/O OXYCODONE. PT C/O 7.5-8/10 LUQ AND RUQ PAIN. MULTIPLE SNACKS REQUESTED, INTAKE 100%. STRICT I&O'S. TELE: SR @101 WITH BBB. PT DENIES CHEST PAIN/PRESSURE/SOB DURING THIS SHIFT. PT STANDING/WALKING ON HALLWAYS T/O THIS SHIFT. MINIMAL REST/SLEEP DURING NIGHT HRS. BED AT THE LOWEST POSITION, CALL LIGHT W/I REACH. PT IS A/O X4, ABLE TO MAKE HIS NEEDS KNOWN AND COOPERATIVE WITH CARE.
[2024-05-08 05:07] VITALS: BP 108/71
[2024-05-08 05:51] LABS: BASOPHILS ABSOLUTE AUTO 0.03 K/mm3 (0.00-0.23); BASOPHILS PERCENT AUTO 1 % (0-2); EOSINOPHILS ABSOLUTE AUTO 0.13 K/mm3 (0.00-0.68); EOSINOPHILS PERCENT AUTO 3 % (0-6); Hematocrit 38.9 % (37.0-53.0); Hemoglobin 13.3 g/dL (13.5-17.5); IMMATURE GRAN ABSOLUTE AUTO 0.01 K/mm3 (0.00-0.10); IMMATURE GRAN PERCENT AUTO 0 % (0-1); LYMPHOCYTES ABSOLUTE AUTO 0.87 K/mm3 (0.84-5.20); LYMPHOCYTES PERCENT AUTO 19 % (21-46); MONOCYTES ABSOLUTE AUTO 0.42 K/mm3 (0.16-1.47); MONOCYTES PERCENT AUTO 9 % (4-13); Mean Corpuscular HGB 31.2 pg (26.0-34.0); Mean Corpuscular HGB Conc 34.2 g/dL (31.5-36.5); Mean Corpuscular Volume 91 fL (80-100); Mean Platelet Volume 10.1 fL (9.1-12.4); NEUTROPHILS PERCENT AUTO 69 % (41-73); Platelet Count 118 K/mm3 (150-400); RDW Coefficient Variation 15.3 % (11.7-14.2); Red Blood Cell Count 4.26 M/mm3 (4.30-5.90); White Blood Cell Count 4.66 K/mm3 (4.00-11.30)
[2024-05-08 07:03] VITALS: BP 109/72
[2024-05-08 07:21] LABS: Albumin, Blood 3.3 g/dL (3.4-5.0); Albumin/Globulin Ratio 1.2 (0.8-1.8); Bilirubin, Total 1.2 mg/dL (0.1-1.0); Calcium, Blood 8.1 mg/dL (8.5-10.1); Creatinine, Blood 1.25 mg/dL (0.60-1.20); Globulin, Blood 2.7 g/dL (2.2-4.0); Potassium, Blood 2.5 mmol/L (3.5-5.5)
[2024-05-08] MEDS ORDERED: Potassium Chloride 40 MEQ in NS 250 ML IV ONE (08:30)
--- NOTE | 2024-05-08 08:31 | NUR ---
0831- PT REFUSING TO KEEP BED AT LOWEST POSITION. PT EDUCATED ON OUR POLICY. PT EDUCATED ON RISKS VS BENEFITS. PT STATES HE WNATS TO KEEP BED AT HIGH POSITION DESPITE RN ASKING HIM TO KEEP AT LOWEST POSITION. PT REFUSING TO COOPERATE. BED IN HIGH POSITION PER PT REQUEST.
--- NOTE | 2024-05-08 08:35 | NUR ---
0835- PT REFUSING TO USE 2-3L OXYGEN WHEN WALKING TO BATHROOM. PT EDUCATED. STILL REFUSING.
[2024-05-08] MEDS ORDERED: Potassium Chloride 20 MEQ TabCR PO ONE (09:00)
[2024-05-08 11:47] VITALS: BP 108/68
[2024-05-08] MEDS ORDERED: Potassium Chl 20MEQ/Water100ML 100 ML IV ONE (13:00)
[2024-05-08] MEDS ORDERED: OxyCODONE HCL 5 MG TAB PO PRN (15:15)
[2024-05-08 15:56] VITALS: BP 104/76
[2024-05-08 17:06] LABS: Bun/Creatinine Ratio 28.1 (12.0-20.0); Calcium, Blood 8.7 mg/dL (8.5-10.1); Creatinine, Blood 1.28 mg/dL (0.60-1.20); Potassium, Blood 3.3 mmol/L (3.5-5.5)
--- NOTE | 2024-05-08 18:34 | NUR ---
SUMMARY- AAOX4. IND IN ROOM AND HALLS. ON 2L CONTINUOUS EXCEPT WHEN PT TAKES OFF O2 WHEN HE DOESN'T FEEL HE NEEDS IT AND REFUSES USING A PORTABLE TANK. NO ACUTE EVENTS NOTED THIS SHIFT. ABD PAIN WELL CONTROLLED WITH EMAR PAIN MEDS. GOOD APPETITE.
[2024-05-08 19:37] VITALS: BP 101/69
--- NOTE | 2024-05-08 23:35 | NUR ---
ASSUMPTION OF CARE THIS RN ASSUMED CARE OF THIS PATIENT, PT IS SLEEPING PEACEFULLY. TELE READS S @98 W/ 1ST DEGREE AND BBB.
[2024-05-09 00:29] VITALS: BP 109/96
[2024-05-09 04:18] VITALS: BP 99/71
--- NOTE | 2024-05-09 05:32 | NUR ---
SHIFT SUMMARY VSS, TELE READS SR W/1ST DEGREE AND BBB. NO ACUTE EVENTS NOTED SINCE ASSUMING CARE OF PATIENT, HAS BEEN NOTED TO BE SLEEPING WITH HOURLY ROUNDING. PT VOIDING INDEP, TOLLERATING PO INTAKE W/O N/V.
[2024-05-09 06:53] LABS: BASOPHILS ABSOLUTE AUTO 0.06 K/mm3 (0.00-0.23); BASOPHILS PERCENT AUTO 1 % (0-2); EOSINOPHILS ABSOLUTE AUTO 0.16 K/mm3 (0.00-0.68); EOSINOPHILS PERCENT AUTO 3 % (0-6); Hemoglobin 13.7 g/dL (13.5-17.5); IMMATURE GRAN ABSOLUTE AUTO 0.01 K/mm3 (0.00-0.10); IMMATURE GRAN PERCENT AUTO 0 % (0-1); LYMPHOCYTES ABSOLUTE AUTO 1.04 K/mm3 (0.84-5.20); LYMPHOCYTES PERCENT AUTO 20 % (21-46); MONOCYTES PERCENT AUTO 13 % (4-13); Mean Corpuscular HGB 30.9 pg (26.0-34.0); Mean Corpuscular HGB Conc 34.3 g/dL (31.5-36.5); Mean Corpuscular Volume 90 fL (80-100); Mean Platelet Volume 10.6 fL (9.1-12.4); NEUTROPHILS ABSOLUTE AUTO 3.31 K/mm3 (1.96-9.15); NEUTROPHILS PERCENT AUTO 63 % (41-73); Platelet Count 139 K/mm3 (150-400); RDW Coefficient Variation 15.2 % (11.7-14.2); RDW Standard Deviation 50.6 fL (35.1-46.3); Red Blood Cell Count 4.43 M/mm3 (4.30-5.90); White Blood Cell Count 5.28 K/mm3 (4.00-11.30)
[2024-05-09 07:13] LABS: Bun/Creatinine Ratio 32.5 (12.0-20.0); Calcium, Blood 8.9 mg/dL (8.5-10.1); Creatinine, Blood 1.26 mg/dL (0.60-1.20); Potassium, Blood 2.6 mmol/L (3.5-5.5)
[2024-05-09 07:42] VITALS: BP 111/67
[2024-05-09] MEDS ORDERED: Metolazone 5 MG Tab PO SCH (09:00)
--- NOTE | 2024-05-09 15:45 | NUR ---
1430- NOTIFIED MD DEVRIES PT HAD A REACTION TO HIS LOVENOX INJECTION IN HIS LLQ FROM THIS MORNING'S ADMINISTRATION. PT HAS A HEMATOMA NOW IN HIS LLQ THAT IS MODERATELY PAINFUL. MD DEVRIES AWARE. THIS RN ALSO CALLED STEFANIE IN PHARMACY AND INFORMED HER. PHARMACIST STATED THAT "NINE PERCENT OF PEOPLE CAN HAVE A REACTION OF A HEMATOMA. THIS CAN BE A SIDE EFFECT." PHARMACIST AWARE.
[2024-05-09 16:22] VITALS: BP 102/70
[2024-05-09] MEDS ORDERED: Potassium Chloride 20 MEQ TabCR PO ONE (16:35)
[2024-05-09] MEDS ORDERED: Potassium Chl 20MEQ/Water100ML 100 ML IV SCH (16:35)
--- NOTE | 2024-05-09 16:36 | NUR ---
3445- DR. DEVRIES TO BEDSIDE AND GAVE VERBAL FOR 60MEQ IV POTASSIUM AND 40MEQ PO POTASSIUM TO BE GIVEN NOW.
[2024-05-09] MEDS ORDERED: OxyCODONE HCL 5 MG TAB PO PRN (16:55)
[2024-05-09] MEDS ORDERED: Potassium Chloride 10 Meq Tablet SA PO ONE (17:00)
--- NOTE | 2024-05-09 18:11 | NUR ---
SUMMARY- AAOX4. PAIN WELL CONTROLLED WITH EMAR PAIN MEDS. PT ON 2-3L O2 CONTINUOUSLY. IND IN ROOM/HALLS. PT ADHERING TO WATER RESTRICTION. GOOD APPETITE. ATIVAN GIVEN X2 THIS SHIFT FOR ANXIETY. ACUTE EVENTS-PT HAD ST DEPRESSION-MD DEVRIES AWARE. POTASSIUM REPLACEMENT ORDERED.
[2024-05-09 19:14] VITALS: BP 100/80
[2024-05-09] MEDS ORDERED: Apixaban 5 MG Tab PO SCH (21:00)
[2024-05-09 22:09] LABS: Bun/Creatinine Ratio 39.3 (12.0-20.0); Calcium, Blood 9.4 mg/dL (8.5-10.1); Creatinine, Blood 1.17 mg/dL (0.60-1.20)
--- NOTE | 2024-05-10 03:18 | NUR ---
SHIFT SUMMARY NO ACUTE EVENTS DURING THIS SHIFT. MEDICATED PER EMAR WITH PRN OXYCODONE 10MG AND ATIVAN PO 1MG ORDERED. PT REPORTS 7/10 ABDOMINAL PAIN. MEDICATED FOR NAUSEA @HS. PT HAS A VERY GOOD APPETITE. FREE H20 RESTRICTION 2L. PT HAS SIGNED A RELEASE OF LIABILITY/REFUSAL OF MEDICAL CARE REGARDING PT'S BED IS NOT AT THE LOWEST POSITION. CONTINUED PT EDUCATION, INCLUDING FALL PRECAUTIONS. TELE: SINUS TACH @100 WITH BBB. PT DENIES CHEST PAIN AND SOB. O2 @2L VIA NC, PT WEARS PRN. O2 SAT'S>93%. +2 EDEMA LE'S BILATERALLY. FINISHED INFUSING THE POTASSIUM IV THIS EARLY AM HRS. PT IS A/O X4, ABLE TO MAKE HIS NEEDS KNOWN.
[2024-05-10 04:27] VITALS: BP 89/73
[2024-05-10 06:39] LABS: BASOPHILS ABSOLUTE AUTO 0.08 K/mm3 (0.00-0.23); BASOPHILS PERCENT AUTO 1 % (0-2); EOSINOPHILS ABSOLUTE AUTO 0.16 K/mm3 (0.00-0.68); EOSINOPHILS PERCENT AUTO 3 % (0-6); Hematocrit 40.9 % (37.0-53.0); Hemoglobin 14.4 g/dL (13.5-17.5); IMMATURE GRAN ABSOLUTE AUTO 0.02 K/mm3 (0.00-0.10); IMMATURE GRAN PERCENT AUTO 0 % (0-1); LYMPHOCYTES ABSOLUTE AUTO 1.53 K/mm3 (0.84-5.20); LYMPHOCYTES PERCENT AUTO 24 % (21-46); MONOCYTES ABSOLUTE AUTO 0.78 K/mm3 (0.16-1.47); MONOCYTES PERCENT AUTO 12 % (4-13); Mean Corpuscular HGB 31.2 pg (26.0-34.0); Mean Corpuscular HGB Conc 35.2 g/dL (31.5-36.5); Mean Corpuscular Volume 89 fL (80-100); Mean Platelet Volume 10.3 fL (9.1-12.4); NEUTROPHILS ABSOLUTE AUTO 3.86 K/mm3 (1.96-9.15); NEUTROPHILS PERCENT AUTO 60 % (41-73); Platelet Count 159 K/mm3 (150-400); RDW Standard Deviation 47.8 fL (35.1-46.3); Red Blood Cell Count 4.62 M/mm3 (4.30-5.90); White Blood Cell Count 6.43 K/mm3 (4.00-11.30)
[2024-05-10 06:58] LABS: Bun/Creatinine Ratio 40.5 (12.0-20.0); Calcium, Blood 9.2 mg/dL (8.5-10.1); Creatinine, Blood 1.16 mg/dL (0.60-1.20)
[2024-05-10 07:26] VITALS: BP 98/76
[2024-05-10] MEDS ORDERED: Potassium Chl 20MEQ/Water100ML 100 ML IV STA (09:26)
[2024-05-10] MEDS ORDERED: Potassium Chloride 20 MEQ/15 ML UDC PO SCH (10:00)
[2024-05-10] MEDS ORDERED: Dextrose 50% 50 ML Syringe IV ONE (11:25)
[2024-05-10 11:44] VITALS: BP 113/79
--- NOTE | 2024-05-10 11:51 | NUR ---
1125- THIS RN NOTIFIED MD DEVRIES OF BLOOD GLUCOSE=44. PT GIVEN X2 OJ AND ORDERED D50 ONE AMPULE TO BE GIVEN NOW. RN TO PLACE ORDER.
[2024-05-10 12:26] LABS: Glucose, Blood 164 mg/dL (70-99)
[2024-05-10 16:03] LABS: Bun/Creatinine Ratio 35.8 (12.0-20.0); Calcium, Blood 8.9 mg/dL (8.5-10.1); Creatinine, Blood 1.34 mg/dL (0.60-1.20); Potassium, Blood 3.1 mmol/L (3.5-5.5)
[2024-05-10] MEDS ORDERED: Metolazone 5 MG Tab PO SCH (18:00)
--- NOTE | 2024-05-10 18:50 | NUR ---
SUMMARY- AAOX4. IND IN ROOM/HALLS. ON 2-3L PRN PER PT. PT REFUSES TO WEAR OXYGEN CONTINOUSLY. PAIN WELL CONTROLLED WITH EMAR PAIN MEDS. PT HAD EPISODE OF LOW GLUCOSE=44. MD DEVRIES AWARE. REFER TO ABOVE NOTE. GOOD APPETITE. PT IS NOT ADHERING TO CARDIAC DIET. PT IS ORDERING OUTSIDE FOOD AND ALSO HAVING FAMILY BRING IN FAST FOOD. PT IS ORDERING UBER EATS CURRENTLY.
[2024-05-10 19:50] VITALS: BP 96/70
[2024-05-10 23:32] VITALS: BP 96/71
[2024-05-11 04:01] VITALS: BP 87/67
--- NOTE | 2024-05-11 05:48 | NUR ---
AAOX4, INDEPENDENT IN ROOM. USES CALL OR COMES TO DOOR FOR NEEDS. TELE, ST @103. NON-COMPLIENT WITH O2, SIGNED WAIVER. ASSYMTOMATIC HYPOTENSION NOTED. REC'S OXY 20MG TID AND 20 MG PRN BID FOR ABDOMINAL PAIN. STRICT I&O, WITH 2 L WATER RESTRICTION. BESIDES C/O ABDM PAIN, AND ASKING FOR EARLY PAIN MEDICATION ADMIN, PT HAD NO ACUTE NEEDS OVERNIGHT.
[2024-05-11 07:34] VITALS: BP 108/75
[2024-05-11 07:45] LABS: BASOPHILS ABSOLUTE AUTO 0.08 K/mm3 (0.00-0.23); BASOPHILS PERCENT AUTO 2 % (0-2); EOSINOPHILS ABSOLUTE AUTO 0.15 K/mm3 (0.00-0.68); EOSINOPHILS PERCENT AUTO 3 % (0-6); Hematocrit 39.5 % (37.0-53.0); Hemoglobin 13.9 g/dL (13.5-17.5); IMMATURE GRAN ABSOLUTE AUTO 0.01 K/mm3 (0.00-0.10); IMMATURE GRAN PERCENT AUTO 0 % (0-1); LYMPHOCYTES PERCENT AUTO 25 % (21-46); MONOCYTES ABSOLUTE AUTO 0.72 K/mm3 (0.16-1.47); MONOCYTES PERCENT AUTO 14 % (4-13); Mean Corpuscular HGB 31.4 pg (26.0-34.0); Mean Corpuscular HGB Conc 35.2 g/dL (31.5-36.5); Mean Corpuscular Volume 89 fL (80-100); Mean Platelet Volume 10.7 fL (9.1-12.4); NEUTROPHILS ABSOLUTE AUTO 3.05 K/mm3 (1.96-9.15); NEUTROPHILS PERCENT AUTO 57 % (41-73); Platelet Count 164 K/mm3 (150-400); RDW Standard Deviation 48.5 fL (35.1-46.3); Red Blood Cell Count 4.43 M/mm3 (4.30-5.90); White Blood Cell Count 5.31 K/mm3 (4.00-11.30)
[2024-05-11 08:09] LABS: Bun/Creatinine Ratio 39.7 (12.0-20.0); Calcium, Blood 9.2 mg/dL (8.5-10.1); Creatinine, Blood 1.31 mg/dL (0.60-1.20); Potassium, Blood 2.3 mmol/L (3.5-5.5)
[2024-05-11] MEDS ORDERED: Potassium Chloride 40 MEQ in NS 250 ML IV ONE ×2 (08:30→18:00)
[2024-05-11 11:55] VITALS: BP 104/69
[2024-05-11] MEDS ORDERED: Potassium Chloride 20 MEQ/15 ML UDC PO SCH (12:00)
[2024-05-11] MEDS ORDERED: Potassium Chl 20MEQ/Water100ML 100 ML IV ONE (13:00)
[2024-05-11 16:19] LABS: Creatinine, Blood 1.53 mg/dL (0.60-1.20); Potassium, Blood 3.3 mmol/L (3.5-5.5)
[2024-05-11 16:50] VITALS: BP 90/72
--- NOTE | 2024-05-11 17:31 | NUR ---
PATIENT A/OX4, UP INDEPENDENTLY IN ROOM. POTASSIUM 2.3 THIS AM, ORAL AND IV REPLACEMENT GIVEN. PATIENT REPORTS SEVERE ABDOMINAL PAIN, OXYCODONE SCHEDULED TO TREAT WITH GOOD RELIEF. SR/ST ON TELE, DENIES ANY CP OR PRESSURE. DIURETICS AND B/P MEDICATIONS HELD THIS EVENING BASED ON PARAMETERS. PATIENT ON 2L FREE WATER RESTRICTION WHICH HE COMPLIES WITH. COOPERATIVE WITH CARE, ABLE TO MAKE NEEDS KNOWN.
[2024-05-11 20:04] VITALS: BP 111/77
[2024-05-11] MEDS ORDERED: MIRT15 PO (20:05)
[2024-05-11] MEDS ORDERED: TraZODone HCl 50 MG Tab PO ONE (21:15)
[2024-05-12 00:28] VITALS: BP 109/78
[2024-05-12 04:27] VITALS: BP 91/66
[2024-05-12 05:25] LABS: Hematocrit 38.8 % (37.0-53.0); Mean Corpuscular HGB 31.5 pg (26.0-34.0); Mean Corpuscular HGB Conc 36.1 g/dL (31.5-36.5); Mean Corpuscular Volume 87 fL (80-100); Mean Platelet Volume 10.1 fL (9.1-12.4); Platelet Count 163 K/mm3 (150-400); RDW Coefficient Variation 14.7 % (11.7-14.2); Red Blood Cell Count 4.44 M/mm3 (4.30-5.90); White Blood Cell Count 5.84 K/mm3 (4.00-11.30)
[2024-05-12 05:50] LABS: Magnesium, Blood 2.3 mg/dL (1.6-2.4)
[2024-05-12 05:52] LABS: Bun/Creatinine Ratio 47.9 (12.0-20.0); Calcium, Blood 9.1 mg/dL (8.5-10.1); Creatinine, Blood 1.19 mg/dL (0.60-1.20); Phosphorus, Blood 4.6 mg/dL (2.5-4.9); Potassium, Blood 2.4 mmol/L (3.5-5.5)
[2024-05-12 07:33] VITALS: BP 100/62
[2024-05-12] MEDS ORDERED: Potassium Chloride 20 MEQ/15 ML UDC PO SCH (09:30)
[2024-05-12] MEDS ORDERED: Spironolactone 50 MG Tab PO SCH (09:30)
[2024-05-12] MEDS ORDERED: Potassium Chl 20MEQ/Water100ML 100 ML IV SCH (10:00)
[2024-05-12 11:59] VITALS: BP 87/60
[2024-05-12 15:09] LABS: Bun/Creatinine Ratio 47.4 (12.0-20.0); Calcium, Blood 9.1 mg/dL (8.5-10.1); Creatinine, Blood 1.33 mg/dL (0.60-1.20); Potassium, Blood 3.5 mmol/L (3.5-5.5)
[2024-05-12 17:38] VITALS: BP 91/70
--- NOTE | 2024-05-12 17:53 | NUR ---
SHIFT SUMMARY PT CONT WITH LEVEL OF CARE. PT NOTED TO CONT TO RECIEVE POTASSIUM REPLACEMENT THROUGHOUT THIS SHIFT POTOSSIUM LAB THIS AM WAS NOTED TO BE 2.4. AFTER IV REPLACEMENT PT LAB NOTED TO COME UP TO 3.5. HELP PT PM TORSEMIDE AND METALAZONE DT SBP LESS THAN 95.
[2024-05-12 20:25] VITALS: BP 97/70
[2024-05-12] MEDS ORDERED: Mirtazapine 15 MG Tab PO SCH (21:00)
[2024-05-13 01:21] VITALS: BP 94/67
--- NOTE | 2024-05-13 04:19 | NUR ---
SHIFT SUMMMARY PATIENT HAD NO ACUTE CHANGES. ALERT ORIENTED AND INDEPENDENT IN ROOM. USES URINAL AT BEDSIDE. PIVS INTACT. TELE MONITOR NSR 89. DENIES CHEST PAIN, SOB, AND N/V. VSS/AFEBRILE. REPORTED ANXIETY AND ABDOMEN PAIN. PO ATIVAN AND OXYCODONE 20 MG GIVEN PER EMAR. AWAKE MOST OF THE SHIFT WITH MINIMAL SLEEP. CALL LIGHT IN REACH. BED IN LOWEST POSITION. WILL CONTINUE TO MONITOR UNTIL DAY SHIFT NURSE ASSUMES CARE.
[2024-05-13 04:40] VITALS: BP 101/68
[2024-05-13 05:33] LABS: BASOPHILS ABSOLUTE AUTO 0.06 K/mm3 (0.00-0.23); BASOPHILS PERCENT AUTO 1 % (0-2); EOSINOPHILS ABSOLUTE AUTO 0.11 K/mm3 (0.00-0.68); EOSINOPHILS PERCENT AUTO 2 % (0-6); Hematocrit 40.1 % (37.0-53.0); Hemoglobin 14.1 g/dL (13.5-17.5); IMMATURE GRAN ABSOLUTE AUTO 0.03 K/mm3 (0.00-0.10); IMMATURE GRAN PERCENT AUTO 1 % (0-1); LYMPHOCYTES ABSOLUTE AUTO 1.18 K/mm3 (0.84-5.20); LYMPHOCYTES PERCENT AUTO 21 % (21-46); MONOCYTES ABSOLUTE AUTO 0.61 K/mm3 (0.16-1.47); MONOCYTES PERCENT AUTO 11 % (4-13); Mean Corpuscular HGB 31.1 pg (26.0-34.0); Mean Corpuscular HGB Conc 35.2 g/dL (31.5-36.5); Mean Corpuscular Volume 89 fL (80-100); Mean Platelet Volume 9.9 fL (9.1-12.4); NEUTROPHILS ABSOLUTE AUTO 3.77 K/mm3 (1.96-9.15); NEUTROPHILS PERCENT AUTO 66 % (41-73); Platelet Count 171 K/mm3 (150-400); RDW Coefficient Variation 14.8 % (11.7-14.2); RDW Standard Deviation 47.5 fL (35.1-46.3); Red Blood Cell Count 4.53 M/mm3 (4.30-5.90); White Blood Cell Count 5.76 K/mm3 (4.00-11.30)
[2024-05-13 05:56] LABS: Calcium, Blood 9.4 mg/dL (8.5-10.1); Creatinine, Blood 1.2 mg/dL (0.60-1.20); Potassium, Blood 2.8 mmol/L (3.5-5.5)
[2024-05-13 07:36] VITALS: BP 92/70
--- NOTE | 2024-05-13 09:00 | NUR ---
pt up ad louise in room, a/ox4, pleasant and cooperative with care, follows commands, asking for fluids and meds frequently, states he's not doing well, lungs are clear t/o, resp even and unlabored, no cough noted, on r/a, hrr, loud murmur noted, tele in place running sr per monitor, see strip, trace edema noted to b/l le, ppp+1, cap refill <3 sec, vs stable, afebrile, piv to l and r fa's, both sites are clear and patent, btx4, abd flat soft nontender, voids without diff, skin c/w/d, maew, chele, call light in reach.
--- NOTE | 2024-05-13 15:23 | NUR ---
pt ambulating out in jordan, stopped due to leg cramps and required assist to get back to room. declined a chair, call light in reach.
--- NOTE | 2024-05-13 15:23 | NUR ---
Pt is on a fluid restriction. Pt has been asking for fluids. Pt came out of the room and drank from the water fountain. The nurse was notified.
[2024-05-13 16:26] VITALS: BP 91/68
--- NOTE | 2024-05-13 18:45 | NUR ---
pt has been somewhat noncomplaint with fluid restriction, this evening he went to [place] and filled his 1 liter cup with water, instructed him not to drink it, he is going to be way over his limit, he states he would prefer ice anyway, this was provided, he ambulated in the jordan a few times today, this afternoon he got cramps and had to stop, no further changes this shift. call light in reach.
[2024-05-13 20:19] VITALS: BP 80/57
[2024-05-13 21:33] VITALS: BP 101/78
--- NOTE | 2024-05-13 21:56 | NUR ---
Pt non-compliant with 2000ml fluid restriction. has brought drinks in from outside the hospital.
[2024-05-14 04:12] VITALS: BP 101/69
--- NOTE | 2024-05-14 04:20 | NUR ---
SHIFT SUMMARY PATIENT SBP 80/57 AT SHIFT CHANGE. PATIENT RECEIVED PO TORSEMIDE 40 MG AND METOLAZONE 10 MG PRIOR TO SHIFT CHANGE. MULTIPLE CALLS INTO HOSPITALIST AND NOT RETURNED. RECHECKED SBP 102/78. ALERT ORIENTED AND INDEPENDENT. PATIENT NON-COMPLIANT WITH NIGHT FLUID RESTRICTION AFTER GIVING SPECIFIC INSTRUCTIONS. DENIES CHEST PAIN, SOB, AND N/V. AFEBRILE. ANXIOUS AND PO ATIVAN GIVEN PER EMAR. REPORTED ABDOMEN PAIN AND OXYCODONE 20 MG GIVEN PER EMAR. CALL LIGHT IN REACH. BED IN LOWEST POSITION. WILL CONTINUE TO MONITOR UNTIL DAY SHIFT NURSE ASSUMES CARE.
[2024-05-14 07:30] VITALS: BP 100/76
--- NOTE | 2024-05-14 09:00 | NUR ---
Pt standing out in [place] this am, asking for his pain meds, a/ox4, cooperative with care follows commands well, states he got a bit of sleep last night, lungs are clear t/o, resp even and unlabored, no cough noted, on r/a, hrr, tele in place running sr per monitor, see strip, murmur noted, 1+ edema noted to b/l le, ppp+2, cap refill< 3 sec, vs stable, afebrile, piv to l and r fa's, sites are clear and patent, bt x4, abd flat soft nontender, voids without diff, skin c/w/d, maew, chele, call light in reach.
[2024-05-14] MEDS ORDERED: Potassium Chloride 20 MEQ/15 ML UDC PO SCH (12:30)
[2024-05-14 14:41] VITALS: BP 101/63
[2024-05-14 16:15] LABS: Bun/Creatinine Ratio 49.6 (12.0-20.0); Calcium, Blood 9.3 mg/dL (8.5-10.1); Creatinine, Blood 1.25 mg/dL (0.60-1.20); Potassium, Blood 3.8 mmol/L (3.5-5.5)
--- NOTE | 2024-05-14 18:43 | NUR ---
pt had a cxr today, continues to request pain meds an hr prior to dose and an hr after, ambulates around room, and out in halls, no acute changes this shift. call light in reach.
[2024-05-14 19:32] VITALS: BP 100/75
[2024-05-15 00:04] VITALS: BP 97/74
--- NOTE | 2024-05-15 01:40 | NUR ---
pt has been keeping full urinals in bathroom. 3200mls of urine, uncertain when pt filled up urinals. pt did not report full urinals.
--- NOTE | 2024-05-15 04:05 | NUR ---
SHIFT SUMMARY PATIENT ANXIOUS T/O THE SHIFT. PACING IN ROOM AND DOORWAY ENTRANCE OF ROOM. ALERT ORIENTED AND INDEPENDENT. ASKING FOR PAIN MEDICATION WHEN OXYCODONE 20 MG ALREADY GIVEN FOR ABDOMEN PAIN LESS THAN TWO HOURS BEFORE. PO ATIVAN GIVEN FOR ANXIETY. DENIES CHEST PAIN, SOB, AND N/V. VSS/AFEBRILE. FLUID RESTRICTIONS. CALL LIGHT IN REACH. BED IN LOWEST POSITION. WILL CONTINUE TO MONITOR UNTIL DAY SHIFT NURSE ASSUMES CARE.
[2024-05-15 04:49] VITALS: BP 81/54
[2024-05-15 04:53] VITALS: BP 85/72
[2024-05-15 05:33] VITALS: BP 90/56
[2024-05-15] MEDS ORDERED: Pantoprazole Sodium 40 MG Tab PO SCH (06:00)
[2024-05-15 06:17] LABS: BASOPHILS ABSOLUTE AUTO 0.06 K/mm3 (0.00-0.23); BASOPHILS PERCENT AUTO 1 % (0-2); EOSINOPHILS ABSOLUTE AUTO 0.04 K/mm3 (0.00-0.68); EOSINOPHILS PERCENT AUTO 1 % (0-6); Hematocrit 41.8 % (37.0-53.0); Hemoglobin 14.9 g/dL (13.5-17.5); IMMATURE GRAN ABSOLUTE AUTO 0.02 K/mm3 (0.00-0.10); IMMATURE GRAN PERCENT AUTO 1 % (0-1); LYMPHOCYTES PERCENT AUTO 24 % (21-46); MONOCYTES ABSOLUTE AUTO 0.98 K/mm3 (0.16-1.47); MONOCYTES PERCENT AUTO 24 % (4-13); Mean Corpuscular HGB Conc 35.6 g/dL (31.5-36.5); Mean Corpuscular Volume 87 fL (80-100); Mean Platelet Volume 9.9 fL (9.1-12.4); NEUTROPHILS ABSOLUTE AUTO 2.06 K/mm3 (1.96-9.15); NEUTROPHILS PERCENT AUTO 50 % (41-73); Platelet Count 164 K/mm3 (150-400); RDW Coefficient Variation 14.4 % (11.7-14.2); RDW Standard Deviation 45.6 fL (35.1-46.3); White Blood Cell Count 4.16 K/mm3 (4.00-11.30)
[2024-05-15 06:40] LABS: Albumin, Blood 4.7 g/dL (3.4-5.0); Albumin/Globulin Ratio 1.7 (0.8-1.8); Bilirubin, Total 1.5 mg/dL (0.1-1.0); Bun/Creatinine Ratio 55.1 (12.0-20.0); Calcium, Blood 8.9 mg/dL (8.5-10.1); Creatinine, Blood 1.27 mg/dL (0.60-1.20); Globulin, Blood 2.8 g/dL (2.2-4.0); Potassium, Blood 3.2 mmol/L (3.5-5.5); Total Protein, Blood 7.5 g/dL (6.4-8.2)
[2024-05-15] MEDS ORDERED: Potassium Chloride 40 MEQ in NS 250 ML IV ONE (08:15)
[2024-05-15 08:21] VITALS: BP 97/77
[2024-05-15] MEDS ORDERED: Metolazone 5 MG Tab PO SCH (09:00)
[2024-05-15] MEDS ORDERED: ELIQUIS5 M2 PO (14:13)
[2024-05-15] MEDS ORDERED: Ativan1 MG PO (14:14)
[2024-05-15] MEDS ORDERED: OMEP20ER PO (14:15)
[2024-05-15] MEDS ORDERED: METO5 PO (14:15)
[2024-05-15] MEDS ORDERED: ALDACTONE100 MG PO (14:17)
[2024-05-15] MEDS ORDERED: POTA20LUD PO (14:17)
--- NOTE | 2024-05-15 18:06 | NUR ---
DC SUMMARY PT DC THIS SHIFT. DC INSTRUCTION GONE OVER WITH PT WHOM STATED UNDERSTANDING. PT WAS GIVEN HARD COPIES FOR ATIVIAN AND BMP LAB. PT PLACED IN PURPLE DC FOLDER AND GAVE TO HIS MOM. PT DECLINED TO BE ESCORTED OUT AND NOTED TO HAVE STEADY GAIT AND WAS WALKED TO ELEVATOR BY THIS NURSE.
== END 2024-05-15 18:56 | disposition home or self-care (01) | DRG 291 ==
LOC: ER 20:48 → MEDS 23:20
PROVIDERS: Family Medicine; Student in an Organized Health Care Education/Training Program; ADMIT Internal Medicine
PROC: 30233J1 Transfusion of Nonautologous Serum Albumin into Peripheral Vein, Percutaneous Approach (ICD-10-PCS; principal; 2024-05-06)
DX: I50.813 Acute on chronic right heart failure (principal); J96.01 Acute respiratory failure with hypoxia; N17.0 Acute kidney failure with tubular necrosis; I31.9 Disease of pericardium, unspecified; D68.59 Other primary thrombophilia; J90 Pleural effusion, not elsewhere classified; E87.1 Hypo-osmolality and hyponatremia; Z66 Do not resuscitate; I45.10 Unspecified right bundle-branch block; I27.20 Pulmonary hypertension, unspecified; E87.6 Hypokalemia; E16.1 Other hypoglycemia; F41.9 Anxiety disorder, unspecified; Z88.8 Allergy status to other drugs, medicaments and biological substances; Z79.899 Other long term (current) drug therapy; Z79.82 Long term (current) use of aspirin; Z86.73 Personal history of transient ischemic attack (TIA), and cerebral infarction without residual deficits; Z86.711 Personal history of pulmonary embolism; Z90.49 Acquired absence of other specified parts of digestive tract; Z98.84 Bariatric surgery status; Z87.19 Personal history of other diseases of the digestive system; Z87.891 Personal history of nicotine dependence; Z68.26 Body mass index [BMI] 26.0-26.9, adult; Z28.21 Immunization not carried out because of patient refusal
CPT/HCPCS: 36415; 71046; 71260; 76705; 80048; 80053; 82947; 83690; 83735; 83880; 84100; 84145; 84146; 84484; 85025; 85027; 85379; 86140; 93005; 93010; 93306; 94760; 94761; 94762; 99285-25; A9270; J1200; J1650; J1940; J2470; J3010; J3480; J7050; P9047; Q9967